=== PATIENT | male | born 1950 | race Caucasian/White ===

== ENCOUNTER 2021-05-04 15:08 | Outpatient (CLI) | payer MEDICARE, MEDICAID, SELFPAY ==
[2021-05-04 16:00] LABS: Basophils Percent Auto 0.4 % (0.2-1.2); Eosinophils Absolute Auto 0.2 K/mm3 (0-0.3); Eosinophils Percent Auto 2.2 % (0-4.4); Hematocrit 45.4 % (42.0-52.0); Immature Granulocyte Absolute 0.06 K/mm3 (0.00-0.031); Immature Granulocyte Percent A 0.8 % (0-0.5); Immature Reticulocyte Fraction 10.2 % (3.0-15.9); Lymphocytes Absolute Auto 1.25 K/mm3 (0.9-3.2); Lymphocytes Percent Auto 16.5 % (18.3-44.2); Mean Corpuscular Hemoglobin 28.5 pg (26-34); Mean Corpuscular Volume 86.3 fl (80-100); Mean Platelet Volume 8.6 fl (7.4-10.4); Monocytes Absolute Auto 0.6 K/mm3 (0.1-0.6); Monocytes Percent Auto 8.3 % (2.6-8.5); Neutrophils Absolute Auto 5.5 K/mm3 (1.3-6.7); Neutrophils Percent Auto 71.8 % (45.5-73.1); Platelet Count Result 275 k/mm3 (150-375); Red Blood Count 5.26 M/mm3 (4.6-6.20); Red Cell Distribution Width 13.6 % (11.5-14.5); Reticulocyte Percent 1.15 % (0.7-4.3); Reticulocytes Absolute 0.06 B/L (32.2-175.7); White Blood Count 7.6 K/mm3 (4.5-10.0)
[2021-05-04 16:12] LABS: Alanine Aminotransferase 36 U/L (4-50); Albumin Level 4.6 g/dL (3.5-5.1); Alkaline Phosphatase 59 U/L (38-126); Anion Gap 8 mmol/L (8-16); Aspartate Amino Transferase 37 U/L (17-59); Bilirubin,Total 0.9 mg/dL (0.2-1.3); Blood Urea Nitrogen 16 mg/dL (9-20); Calcium 9.4 mg/dL (8.4-10.2); Carbon Dioxide 26 mmol/L (22-30); Chloride 99 mmol/L (98-107); Cholesterol 114 mg/dL (0-200); Estimated Glomerular Filt Rate > 60; Glucose 83 mg/dL (65-110); HDL Direct 32 mg/dL; Lactate Dehydrogenase 439 U/L (313-618); Potassium 4.2 mmol/L (3.4-5.0); Sodium 133 mmol/L (137-145); Triglycerides 53 mg/dL (<150)
[2021-05-04 16:24] LABS: LDL Cholesterol Direct 71 mg/dL; Transferrin 196 mg/dL (206-381)
[2021-05-04 16:31] LABS: MALB Creatinine Ratio 8.6 mg/g (0-30); Microalbumin Urine Random 14.9 mg/L (0-16.7)
[2021-05-04 16:44] LABS: Prostate Specific Antigen 2.3 ng/mL (< OR = 4.0)
[2021-05-04 17:18] LABS: Folic Acid 15.4 ng/mL (2.76->20)
[2021-05-04 17:43] LABS: Iron 106 ug/dL (49-181)
[2021-05-04 17:50] LABS: Percent Iron Saturation 36 % (20-50)
== END 2021-05-04 15:09 | disposition home or self-care (01) ==
PROVIDERS: PCP Family Medicine; Visit Provider Family Medicine
DX: Z12.5 Encounter for screening for malignant neoplasm of prostate (principal); I12.9 Hypertensive chronic kidney disease with stage 1 through stage 4 chronic kidney disease, or unspecified chronic kidney disease; N18.2 Chronic kidney disease, stage 2 (mild); D50.9 Iron deficiency anemia, unspecified; E78.5 Hyperlipidemia, unspecified; Z00.00 Encounter for general adult medical examination without abnormal findings
CPT/HCPCS: 36415; 80053; 80061; 82043; 82306; 82607; 82728; 82746; 83540; 83550; 83615; 84153; 84439; 84443; 84466; 84480; 85025; 85046; G0103

== ENCOUNTER → 2022-04-24 01:26 | Outpatient (CLI) | payer MEDICARE, MEDICAID, SELFPAY ==
[2022-04-24 10:40] LABS: SARS-CoV-2 RNA PCR Negative
== END ==
DX: C44.212 Basal cell carcinoma of skin of right ear and external auricular canal (principal); Z20.822 Contact with and (suspected) exposure to COVID-19
CPT/HCPCS: C9803; U0003; U0005

== ENCOUNTER 2022-11-27 10:12 | Outpatient (CLI) | payer MEDICARE, MEDICAID, SELFPAY ==
[2022-11-27 10:57] LABS: Basophils Percent Auto 0.6 % (0.2-1.2); Eosinophils Absolute Auto 0.1 K/mm3 (0-0.3); Hematocrit 47.3 % (42.0-52.0); Hemoglobin 15.4 g/dL (14.0-18.0); Immature Granulocyte Absolute 0.03 K/mm3 (0.00-0.031); Immature Granulocyte Percent A 0.4 % (0-0.5); Lymphocytes Absolute Auto 1.11 K/mm3 (0.9-3.2); Lymphocytes Percent Auto 15.8 % (18.3-44.2); Mean Corpuscular HGB Conc 32.6 g/dl (32-36); Mean Corpuscular Hemoglobin 28.7 pg (26-34); Mean Corpuscular Volume 88.2 fl (80-100); Mean Platelet Volume 8.7 fl (7.4-10.4); Monocytes Absolute Auto 0.7 K/mm3 (0.1-0.6); Monocytes Percent Auto 10.2 % (2.6-8.5); Platelet Count Result 249 k/mm3 (150-375); Red Blood Count 5.36 M/mm3 (4.6-6.20); Red Cell Distribution Width 13.8 % (11.5-14.5)
[2022-11-27 11:10] LABS: Alanine Aminotransferase 22 U/L (6-50); Albumin Level 4.4 g/dL (3.5-5.1); Alkaline Phosphatase 55 U/L (38-126); Anion Gap 9 mmol/L (8-16); Aspartate Amino Transferase 25 U/L (17-59); Bilirubin,Total 0.8 mg/dL (0.2-1.3); Blood Urea Nitrogen 15 mg/dL (9-20); Calcium 9.1 mg/dL (8.4-10.2); Carbon Dioxide 26 mmol/L (22-30); Chloride 101 mmol/L (98-107); Cholesterol 118 mg/dL (0-200); Estimated Glomerular Filt Rate > 60; Glucose 99 mg/dL (65-110); HDL Direct 32 mg/dL; Potassium 4.2 mmol/L (3.4-5.0); Sodium 136 mmol/L (137-145); Triglycerides 56 mg/dL (<150)
[2022-11-27 11:22] LABS: LDL Cholesterol Direct 63 mg/dL
[2022-11-27 11:28] LABS: Iron 57 ug/dL (49-181)
[2022-11-27 11:33] LABS: Creatinine Urine 141.7 mg/dL
[2022-11-27 11:34] LABS: MALB Creatinine Ratio 17.6 mg/g (0-30); Microalbumin Urine Random 24.9 mg/L (0-16.7)
[2022-11-27 11:38] LABS: Percent Iron Saturation 17 % (20-50)
[2022-11-27 11:39] LABS: Total Triiodothyronine (T3) 1.09 NG/ML (0.97-1.69)
[2022-11-27 12:01] LABS: Hepatitis B Surface Antigen Negative (Negative)
[2022-11-27 12:06] LABS: HAV RESULT Negative (Negative); Hepatitis B Core IgM Result Negative (Negative)
[2022-11-27 12:18] LABS: Hepatitis C Virus Antibody Negative (Negative)
[2022-11-27 12:22] LABS: Free T4 Free Thyroxine 1.51 ng/mL (0.78-2.19); Vitamin D 25 Hydroxy 34.9 ng/mL
== END 2022-11-27 10:13 | disposition home or self-care (01) ==
PROVIDERS: Visit Provider Family Medicine
DX: E55.9 Vitamin D deficiency, unspecified (principal); E78.5 Hyperlipidemia, unspecified; I25.10 Atherosclerotic heart disease of native coronary artery without angina pectoris; I12.0 Hypertensive chronic kidney disease with stage 5 chronic kidney disease or end stage renal disease; N18.9 Chronic kidney disease, unspecified; K21.9 Gastro-esophageal reflux disease without esophagitis; D50.9 Iron deficiency anemia, unspecified; Z11.59 Encounter for screening for other viral diseases
CPT/HCPCS: 36415; 80053; 80061; 80074; 82043; 82306; 82728; 83540; 83550; 84439; 84443; 84480; 85025

== ENCOUNTER 2023-03-16 08:31 | Emergency (ER) | payer MEDICARE, MEDICAID, SELFPAY ==
[2023-03-16 08:40] VITALS: BP 151/81; PULSE 63; RESP 14; TEMP 36.6; O2SAT 100
--- NOTE | 2023-03-16 08:54 | ED.EXTPRO ---
HPI - Extremity Problem General Chief complaint: Extremity Problem,Nontraumatic Stated complaint: left knee pain Time Seen by Provider: 03/16/23 09:33 Source: patient and RN notes reviewed Mode of arrival: ambulatory Limitations: no limitations History of Present Illness HPI Narrative: 72-year-old male presents with concern for right knee pain for approximately 10 days. He denies any injury or trauma. He reports pain is anterior and occurs mostly when he is sitting down and bending his knee. He reports pain is not significant when he is walking. He denies any tenderness. He denies redness, warmth, swelling. He has not taken any medication for pain or other intervention for his symptoms. He denies history of problems with the knee. MD Complaint: extremity pain Related Data Home Medications Medication Instructions Recorded Confirmed metoprolol tartrate 25 mg tablet mg 03/16/23 03/16/23 Allergies Allergy/AdvReac Type Severity Reaction Status Date / Time clopidogrel Allergy Intermediate SEVERE Verified 03/16/23 08:55 BRUISING Review of Systems Review of Systems: CONSTITUTIONAL: Denies malaise, chills, sweats, or fever. SKIN: Denies rash or itching, open skin, laceration, abrasion, redness, warmth, swelling. MUSCULOSKELETAL: Reports left knee pain NEUROLOGIC: Denies numbness, weakness All systems reviewed & are unremarkable except as noted in HPI and below PMFSH Comments At time of signature, agree with nursing past medical, surgical, social and family history. There is no relevant family history pertinent to the presenting complaint Exam Narrative: GENERAL: Well-appearing, well-nourished, and in no acute distress. HEAD: Normocephalic, atraumatic. EYES: PERRLA, conjunctivae clear NECK: Supple. CHEST: Speaks in full sentences. No respiratory distress. HEART: Regular rate and rhythm. Normal and equal peripheral pulses. EXTREMITIES: Right knee has grossly normal strength and sensation, normal range of motion. No edema or ecchymosis. 5/5 strength with the flexion and extension. Normal sensation with sensitivity to light touch and pain. No point tenderness. No open wounds, no skin tenting, no devitalized tissue or atrophy, no trophic changes, no obvious deformity, alignment normal, nearby joints and structures intact. Distal pulses palpable and equal bilaterally, skin warm, dry, pink. Capillary refill less than 3 seconds. SKIN: Warm, dry, no rash. NEURO: Alert and oriented x3. PSYCH: Normal mood and affect Course Course Emergency Course: Patient is aware of diagnosis, understands and agrees to treatment plan. Anticipatory guidance given. Patient agrees to follow-up as directed and is aware of reasons to seek care at the emergency department. Portions of this record may have been created with voice recognition software Level of Care: Express Care Visit Vital Signs Vital signs: Vital Signs Temperature 97.9 F 03/16/23 08:40 Pulse Rate 63 03/16/23 08:40 Respiratory Rate 14 03/16/23 08:40 Blood Pressure 151/81 H 03/16/23 08:40 Pulse Oximetry 100 03/16/23 08:40 Temperature 97.9 F 03/16/23 08:40 Pulse Rate 63 03/16/23 08:40 Respiratory Rate 14 03/16/23 08:40 Blood Pressure 151/81 H 03/16/23 08:40 Pulse Oximetry 100 03/16/23 08:40 Reviewed. Critical Care Time Critical Care Time Critical Care Time: No Discharge Plan Discharge Clinical Impression: Anterior knee pain Patient Disposition: Home, Self-Care Condition: Stable Instructions: Knee Pain (ED) Additional Instructions: Avoid activities that cause pain until the pain subsides. Ice to the area 20-30 minutes 4-6 times a day Elevate above heart Elastic wrap as directed for comfort for the next 5-7 days Tylenol for lesser pain Ibuprofen regularly for the next 2-3 days for the inflammation Follow up with orthopedic provider if the condition is not improving within 1 week. If the conditio
== END 2023-03-16 09:55 | disposition home or self-care (01) ==
PROVIDERS: Emergency Provider Nurse Practitioner; PCP Nurse Practitioner Adult Health
DX: M25.562 Pain in left knee (principal)
CPT/HCPCS: 99213; G0463

== ENCOUNTER 2023-10-22 12:53 | Outpatient (CLI) | payer MEDICARE, MEDICAID, SELFPAY ==
[2023-10-22 13:44] LABS: Basophils Percent Auto 0.4 % (0.2-1.2); Eosinophils Absolute Auto 0.1 K/mm3 (0-0.3); Eosinophils Percent Auto 1.3 % (0-4.4); Hematocrit 49.1 % (42.0-52.0); Hemoglobin 15.6 g/dL (14.0-18.0); Immature Granulocyte Absolute 0.04 K/mm3 (0.00-0.031); Immature Granulocyte Percent A 0.5 % (0-0.5); Lymphocytes Absolute Auto 1.38 K/mm3 (0.9-3.2); Lymphocytes Percent Auto 18.5 % (18.3-44.2); Mean Corpuscular HGB Conc 31.8 g/dl (32-36); Mean Corpuscular Hemoglobin 27.8 pg (26-34); Mean Corpuscular Volume 87.5 fl (80-100); Mean Platelet Volume 8.9 fl (7.4-10.4); Monocytes Absolute Auto 0.7 K/mm3 (0.1-0.6); Monocytes Percent Auto 8.7 % (2.6-8.5); Neutrophils Absolute Auto 5.3 K/mm3 (1.3-6.7); Neutrophils Percent Auto 70.6 % (45.5-73.1); Platelet Count Result 282 k/mm3 (150-375); Red Blood Count 5.61 M/mm3 (4.6-6.20); Red Cell Distribution Width 13.9 % (11.5-14.5); White Blood Count 7.5 K/mm3 (4.5-10.0)
[2023-10-22 14:40] LABS: Alanine Aminotransferase 24 U/L (6-50); Albumin Level 4.4 g/dL (3.5-5.1); Alkaline Phosphatase 66 U/L (38-126); Anion Gap 9 mmol/L (8-16); Aspartate Amino Transferase 32 U/L (17-59); Bilirubin,Total 1.3 mg/dL (0.2-1.3); Blood Urea Nitrogen 23 mg/dL (9-20); Calcium 9.8 mg/dL (8.4-10.2); Carbon Dioxide 26 mmol/L (22-30); Chloride 103 mmol/L (98-107); Cholesterol 126 mg/dL (0-200); Estimated Glomerular Filt Rate > 60; Glucose 78 mg/dL (65-110); HDL Direct 37 mg/dL; Potassium 4.3 mmol/L (3.4-5.0); Sodium 138 mmol/L (137-145); Triglycerides 49 mg/dL (<150)
[2023-10-22 14:52] LABS: LDL Cholesterol Direct 76 mg/dL
[2023-10-22 15:12] LABS: Total Triiodothyronine (T3) 0.97 NG/ML (0.97-1.69)
[2023-10-22 15:38] LABS: Creatinine Urine 205.3 mg/dL
[2023-10-22 15:45] LABS: Microalbumin Urine Random 22.5 mg/L (0-16.7)
[2023-10-22 15:54] LABS: Free T4 Free Thyroxine 1.37 ng/mL (0.78-2.19)
== END 2023-10-22 12:54 | disposition home or self-care (01) ==
PROVIDERS: PCP Nurse Practitioner Adult Health; Visit Provider Nurse Practitioner Adult Health
DX: Z12.5 Encounter for screening for malignant neoplasm of prostate (principal); I10 Essential (primary) hypertension; E78.5 Hyperlipidemia, unspecified; R53.83 Other fatigue; R53.1 Weakness
CPT/HCPCS: 36415; 80053; 80061; 82043; 84153; 84439; 84443; 84480; 85025; G0103

== ENCOUNTER 2023-11-22 13:56 | Emergency (ER) | payer MEDICARE, MEDICAID, SELFPAY ==
--- NOTE | 2023-11-22 13:58 | ED.EAR ---
HPI - Ear Problem General Chief complaint: Ear Stated complaint: left ear pain Time Seen by Provider: 11/22/23 13:58 Source: patient Mode of arrival: ambulatory Limitations: no limitations History of Present Illness HPI Narrative: Patient is a 73-year-old male who presents with 1 week of headaches, sores on head and itching on left side of head. Patient also has left ear pain. Patient's primary care provider appointment next week. Patient also has follow-up for skin cancer evaluation next month. MD Complaint: ear pain Related Data Home Medications Medication Instructions Recorded Confirmed metoprolol tartrate 25 mg tablet 25 mg PO DAILY 03/16/23 11/22/23 atorvastatin 20 mg tablet 20 mg PO DAILY 11/22/23 11/22/23 Allergies Allergy/AdvReac Type Severity Reaction Status Date / Time clopidogrel Allergy Intermediate SEVERE Verified 11/22/23 14:14 BRUISING Review of Systems Review of Systems: All systems reviewed & are unremarkable except as noted in HPI and below Constitutional: Constitutional: Denies body ache(s), Denies chills, Denies fever(s), Reports headache(s) and Denies malaise Eyes: Eyes: Denies blurry vision, Denies eye discharge and Denies irritation ENT: Reports otalgia, Denies headache(s), Denies nasal congestion, Denies nasal discharge and Denies sore throat Cardiovascular: Cardiovascular: Denies chest pain, Denies edema, Denies palpitations and Denies dyspnea on exertion Respiratory: Respiratory: Denies cough and Denies dyspnea on exertion Gastrointestinal: Gastrointestinal: Denies abdominal pain, Denies diarrhea, Denies nausea and Denies vomiting Musculoskeletal: Musculoskeletal: Denies back pain, Denies arthralgias and Denies muscle weakness Integumentary/Breasts: Skin/Breast: Reports pruritus, Reports lesions and Denies rash Neurologic: Denies headache(s) Psychiatric: Psychiatric: Reports no additional psychiatric complaints Endocrine: Endocrine: Denies palpitations PMFSH Comments At time of signature, agree with nursing past medical, surgical, social and family history. There is no relevant family history pertinent to the presenting complaint? Exam Const: General: cooperative, healthy appearing, no acute distress and well nourished Nutritional Appearance: well nourished Orientation/consciousness: patient oriented x3 Limitations: no limitations HENMT: Head: normal to inspection, normocephalic and atraumatic Ears: hearing grossly normal bilaterally, TM's normal bilaterally, EAC's normal and no periauricular adenopathy Face/Nose/Sinus: Normal external nose present, Normal nares present, Normal nasal mucous membranes and turbinates present, No nasal discharge present, normal facial exam and sinuses nontender Face and sinus: normal facial exam and sinuses nontender Mouth: Yes Normal oral and palatal mucosa present, Yes lip normal, Yes tongue normal and Yes moist mucous membranes Throat: posterior oropharynx normal, tonsils normal and uvula midline Eyes: General: appearance normal, both eyes and all related structures Alignment and Position: alignment normal and position normal Eyelids: eyelids normal Pupils: Equal, round and reactive pupils present EOM: EOMs intact bilaterally Neck: Neck: normal visual inspection, full ROM, no lymphadenopathy and supple Chest: Chest palpation & inspection: normal inspection of the chest Resp: Effort & Inspection: normal respiratory effort and able to speak in complete sentences Auscultation: clear to auscultation bilaterally, no crackles, no rales, no rhonchi and no wheezes Cardio: Rate: regular rate Rhythm: regular rhythm Heart sounds: S1 normal heart sound present and S2 normal heart sound present Skin: General skin exam: normal color and no rashes or lesions noted Rashes: rashes noted (head) vesicles left arrangement clustered, surface warm, waxy and with crusting and tender Neuro: General: patient oriented x3 and moves all extremities Crania
[2023-11-22 14:11] VITALS: BP 149/79; PULSE 59; RESP 16; TEMP 37.1; O2SAT 98
== END 2023-11-22 15:00 | disposition home or self-care (01) ==
PROVIDERS: Emergency Provider Nurse Practitioner Family; PCP Nurse Practitioner Adult Health
DX: B02.9 Zoster without complications (principal); E78.00 Pure hypercholesterolemia, unspecified; I10 Essential (primary) hypertension
CPT/HCPCS: 99213; G0463

== ENCOUNTER 2023-12-09 08:56 | Emergency (ER) | payer MEDICARE, MEDICAID, SELFPAY ==
--- NOTE | ~2023-12-09 | CT_ITS ---
EXAMINATION: CT brain wo con DATE: 12/09/2023 09:33 INDICATION: Headache. TECHNIQUE: Computed tomography (CT) of the head was performed without intravenous contrast. The mA wa s adjusted according to patient size. Iterative reconstruction technique was employed. The dose-lengt h product was 605.33 mGy-cm. COMPARISON: None FINDINGS: There are scattered areas of low attenuation in the cerebral white matter. There is a 6 mm hyperdense mass in the anterior third ventricle. There is an empty sella. There is no intracranial he morrhage or acute ischemic infarct. The ventricles are normal in size. There is mild mucosal thickeni ng in the paranasal sinuses. The orbits are normal. The mastoid air cells are normal. IMPRESSION: 1. 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 2. Mild nonspecific cerebral white matter disease, which likely represents chronic small vessel ische stefan disease. Reviewed, dictated and finalized at location A. IMPRESSION: 1. 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 2. 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
--- NOTE | 2023-12-09 09:20 | ED.HA ---
HPI - Headache General Chief Complaint: Headache <Jg Osborn APRN - Last Filed: 12/09/23 11:19> Stated Complaint: headache for a while <Jg Osborn APRN - Last Filed: 12/09/23 11:19> Time Seen by Provider: 12/09/23 09:02 <Jg Osborn APRN - Last Filed: 12/09/23 11:19> Source: patient and family <Jg Osborn APRN - Last Filed: 12/09/23 11:19> Mode of arrival: ambulatory <Jg Osborn APRN - Last Filed: 12/09/23 11:19> Limitations: no limitations <Jg Osborn APRN - Last Filed: 12/09/23 11:19> History of Present Illness HPI Narrative: Nic is a 73-year-old male patient presenting to the ER today with complaints of a headache for the past 3-4 weeks. He was seen on November 21 in urgent care and diagnosed with shingles. He was given valacyclovir and this has not helped. States that he took a 500 mg Tylenol this morning and this helped relieve the pain. States that his head feels sore at this time. Is reporting pain to the occipital and across the forehead. Denies any visual changes, loss of vision, dizziness, shortness of breath, or chest pain. <Jg Osborn APRN - Last Filed: 12/09/23 11:19> Related Data Home Medications: Home Medications Medication Instructions Recorded Confirmed metoprolol tartrate 25 mg tablet 25 mg PO DAILY 03/16/23 11/22/23 atorvastatin 20 mg tablet 20 mg PO DAILY 11/22/23 11/22/23 <Jg Osborn APRN - Last Filed: 12/09/23 11:19> Allergies/Adverse Reactions: Allergies Allergy/AdvReac Type Severity Reaction Status Date / Time clopidogrel Allergy Intermediate SEVERE Verified 12/09/23 09:00 BRUISING <Jg Osborn APRN - Last Filed: 12/09/23 11:19> Review of Systems Review of Systems: Pertinent positives per HPI. Patient denies any fever, chills, rash,visual changes, dizziness, cough, runny nose, sore throat, shortness of breath, chest pain, palpitations, nausea, vomiting, diarrhea, constipation, abdominal pain, or any urinary issues. <Jg Osborn APRN - Last Filed: 12/09/23 11:19> PMFSH Comments At the time of my signature, I reviewed and agree with the nursing past medical, surgical, social, and family history. There is no relevant family history pertinent to the patient complaint. <Jg Osborn APRN - Last Filed: 12/09/23 11:19> Exam Narrative: General: Well-developed, well nourished, in no apparent distress Head: Normocephalic, atraumatic Eyes: Pupils equally round and reactive to light bilaterally, EOM intact, sclera and conjunctive clear, no discharge, lids normal Ears: TMs intact and clear, ear canals clear, no drainage, grossly hearing normal. Nose: Nares patent, no discharge, no inflammation, no sinus tenderness. Mouth: Oropharynx without lesions or masses, good dentition, MMM. Tongue midline, even rise and fall of uvula Neck: Supple, trachea midline, no enlargement of anterior or posterior cervical nodes, no thyroid masses or goiter palpable. Cardio: Regular rate and rhythm, s1 and s2 normal, no murmur appreciated. Resp: Clear to auscultation bilaterally anteriorly and posteriorly, no rhonchi, rales, wheezing or rubs Musculoskeletal: No deformity, non-tender to palpation, grossly normal range of motion, muscle strength strong and equal, peripheral pulse strong, no edema, no cyanosis, normal gait and station Neuro: Alert and oriented x4 with normal speech, no focal deficits, cranial nerves I through XII intact, muscle strength 5 out of 5, sensation intact bilaterally. <Jg Osborn APRN - Last Filed: 12/09/23 11:19> Course Course Emergency Course: Portions of this record may have been created with voice recognition software. <Jg Osborn APRN - Last Filed: 12/09/23 11:19> DESIGN SPECIALIST/PA Physician Supervision For this patient encounter, I reviewed the DESIGN SPECIALIST or PA documentation, treatment plan, and med
[2023-12-09 10:06] LABS: Basophils Percent Auto 0.6 % (0.2-1.2); Eosinophils Absolute Auto 0.1 K/mm3 (0-0.3); Eosinophils Percent Auto 1.3 % (0-4.4); Hematocrit 46.4 % (42.0-52.0); Hemoglobin 14.9 g/dL (14.0-18.0); Immature Granulocyte Absolute 0.03 K/mm3 (0.00-0.031); Immature Granulocyte Percent A 0.4 % (0-0.5); Lymphocytes Absolute Auto 1.25 K/mm3 (0.9-3.2); Lymphocytes Percent Auto 18.2 % (18.3-44.2); Mean Corpuscular HGB Conc 32.1 g/dl (32-36); Mean Corpuscular Hemoglobin 28.1 pg (26-34); Mean Corpuscular Volume 87.4 fl (80-100); Mean Platelet Volume 9.2 fl (7.4-10.4); Monocytes Absolute Auto 0.6 K/mm3 (0.1-0.6); Monocytes Percent Auto 9.2 % (2.6-8.5); Neutrophils Absolute Auto 4.8 K/mm3 (1.3-6.7); Neutrophils Percent Auto 70.3 % (45.5-73.1); Platelet Count Result 301 k/mm3 (150-375); Red Blood Count 5.31 M/mm3 (4.6-6.20); Red Cell Distribution Width 14.1 % (11.5-14.5); White Blood Count 6.9 K/mm3 (4.5-10.0)
[2023-12-09 10:07] LABS: Appearance Urine Clear (Clear); Bilirubin Urine Negative (Negative); Blood Urine Negative (Negative); Color Urine Yellow (Yellow); Glucose Urine UA Negative (Negative); Ketones Urine Negative (Negative); Leukocyte Esterase Ur Negative LEU/UL (Negative); Nitrate Urine Negative (Negative); Protein Urine Negative (Negative); pH Urine 5.5 (5.0-9.0)
[2023-12-09 10:18] LABS: Alanine Aminotransferase 24 U/L (6-50); Albumin Level 4.3 g/dL (3.5-5.1); Alkaline Phosphatase 50 U/L (38-126); Anion Gap 5 mmol/L (4-12); Aspartate Amino Transferase 26 U/L (17-59); Bilirubin,Total 0.7 mg/dL (0.2-1.3); Blood Urea Nitrogen 23 mg/dL (9-20); Calcium 9.1 mg/dL (8.4-10.2); Carbon Dioxide 26 mmol/L (22-30); Chloride 101 mmol/L (98-107); Estimated CRCL calculation 45 ml/min; Estimated Glomerular Filt Rate > 60; Glucose 97 mg/dL (65-110); Potassium 4.2 mmol/L (3.4-5.0); Sodium 132 mmol/L (137-145)
[2023-12-09 10:47] LABS: Add Urine Microscopic? NO; Specific Grav Ur 1.032 (1.001-1.035)
[2023-12-09 12:02] VITALS: BP 131/71; PULSE 50; RESP 18; O2SAT 98
== END 2023-12-09 12:10 | disposition home or self-care (01) ==
PROVIDERS: Emergency Provider Nurse Practitioner Family; PCP Nurse Practitioner Adult Health
DX: G44.89 Other headache syndrome (principal); Q04.6 Congenital cerebral cysts
CPT/HCPCS: 36415; 70450; 80053; 81003; 85025; 99284

== ENCOUNTER 2024-06-25 11:35 | Outpatient (CLI) | payer MEDICARE, MEDICAID, SELFPAY ==
[2024-06-25 12:40] LABS: Alanine Aminotransferase 19 U/L (6-50); Albumin Level 4.4 g/dL (3.5-5.1); Alkaline Phosphatase 58 U/L (38-126); Anion Gap 4 mmol/L (4-12); Aspartate Amino Transferase 26 U/L (17-59); Blood Urea Nitrogen 19 mg/dL (9-20); Calcium 9.5 mg/dL (8.4-10.2); Carbon Dioxide 31 mmol/L (22-30); Chloride 106 mmol/L (98-107); Cholesterol 108 mg/dL (0-200); Estimated Glomerular Filt Rate > 60; Glucose 90 mg/dL (65-110); HDL Direct 35 mg/dL; Potassium 4.3 mmol/L (3.4-5.0); Sodium 141 mmol/L (137-145); Triglycerides 58 mg/dL (<150)
[2024-06-25 12:51] LABS: LDL Cholesterol Direct 52 mg/dL
[2024-06-25 13:10] LABS: Prostate Specific Antigen 2.8 ng/mL (< OR = 4.0)
== END 2024-06-25 11:36 | disposition home or self-care (01) ==
PROVIDERS: PCP Family Medicine; Visit Provider Registered Nurse
DX: Z12.5 Encounter for screening for malignant neoplasm of prostate (principal); E78.5 Hyperlipidemia, unspecified
CPT/HCPCS: 36415; 80053; 80061; 84153; G0103

== ENCOUNTER 2024-12-07 07:44 | Outpatient (CLI) | payer MEDICARE, MEDICAID, SELFPAY ==
--- OUTSIDE RECORDS SUMMARY | 2024-12-07 07:50 | XMS_ITS ---
Author Organization [facility] Address [address] [place] [address] Care Team Providers Care Enrichment Teacher Name Role Phone Beto Chan MD Primary Care Provider Active Problems Problem Noted Date Diagnosed Date Cardiovascular stress test abnormal 11/06/2024 Coronary artery disease 11/06/2024 Sensorineural hearing loss, bilateral 12/25/2023 Basal cell carcinoma (BCC) of auricle of right e ar 04/17/2022 Overview (04/17/2022): Added automatically from request for surgery [id number] Coronary artery disease invo lving [place] coronary artery of [place] heart without angina pectoris 01/15/2017 Hx of CABG 01/15/2017 Dyslipidemia 01/15/2017 History of non-ST elevation myocardial infarctio n (NSTEMI) 01/15/2017 Right upper quadrant abdominal pain 01/15/2017 Current Treatment and Therapy Plans No current plan information found. Past Treatment and Therapy Plans No past plan information found. Lifetime Dose Tracking * Chemical Lifetime Dose Automatic Entry Manual Entr y DLP 554 mGycm 554 mGycm 0 mGycm
--- OUTSIDE RECORDS SUMMARY | 2024-12-07 07:50 | XMS_ITS | Referral Summary ---
Author Organization [facility] Address [address] [place] [address] Care Team Providers Care Hearing Aid Specialist Name Role Phone Beto Chan MD Primary Care Provider [phone] Encounters Date Type Department Care Team Description 12/04/2024 Telephone [facility] Cardiology [address] [place] [address] Eagle Koroma MD 11/16/2024 Orders Only [facility] Neurosurgery [address], [address] [place] [id number] Jewel Villa MD Colloid cyst of third ventricle (HCC) (Primary Dx) 11/16/2024 12:00 PM CDT Office Visit [facility] Neurosurgery [address], [address] [place] [address] Jewel Villa MD Colloid cyst of third ventricle (HCC) 11/16/2024 8:50 AM CDT - 11/16/2024 11:59 PM CDT Hospital Encounter [facility] - MRI [address] [facility] [address] [place] [address] Colloid cyst of third ventricle (HCC) Discharge Disposition: Discharge to home or self care 11/06/2024 Telephone [facility] Cardiology [address] [place] [address] Evelia Garcia NP 11/05/2024 Results Follow-Up [facility] Cardiology [address] [facility] [address] [place] [phone] Evelia Garcia NP 11/04/2024 11:15 AM CDT Ancillary Procedure [facility] Cardiology [address] [place] [address] Coronary artery disease involving [place] coronary artery of [place] heart without angina pectoris; S/P CABG x 3 10/21/2024 1:00 PM CDT Office Visit [facility] Cardiology [address] [place] [address] Eagle Koroma MD Coronary artery disease involving [place] coronary artery of [place] heart without angina pectoris (Primary Dx); S/P CABG x 3; Lipid screening from Last 3 Months Allergies Active Allergy Reactions Criticality Noted Date Comments Clopidogrel Other (See comments) Low 01/15/2017 bruising Medications gabapentin (NEURONTIN) 300 mg capsule Take 1 capsule (300 mg total) by mouth nightly 300 capsule 4 Active Additional Information Patient not taking.Reported on 11/16/2024 valACYclovir (VALTREX) 1 gram tablet TAKE 1 TABLET BY MOUTH THREE TIMES DAILY FOR 7 DAYS 4 Active atorvastatin (LIPITOR) 40 mg tabletIndicatio ns:Coronary artery disease involving [place] coronary artery of [place] heart without angina pectoris Take 1 tablet (40 mg total) by mouth nightly 90 tablet 6 5 Active aspirin 81 mg enteric coated tablet Take 1 tablet (81 mg total) by mouth daily 30 tablet 11 5 10/22/19 26 Active Active Problems Problem Noted Date Diagnosed Date Cardiovascular stress test abnormal 11/06/2024 Coronary artery disease 11/06/2024 Sensorineural hearing loss, bilateral 12/25/2023 Basal cell carcinoma (BCC) of auricle of right e ar 04/17/2022 Overview (04/17/2022): Added automatically from request for surgery [id number] Coronary artery disease invo lving [place] coronary artery of [place] heart without angina pectoris 01/15/2017 Hx of CABG 01/15/2017 Dyslipidemia 01/15/2017 History of non-ST elevation myocardial infarctio n (NSTEMI) 01/15/2017 Right upper quadrant abdominal pain 01/15/2017 Immunizations Immunization Administration Dates Next Due Influenza, Quadrivalent, Hig h Dose, Preservative Free, Intrr 05/19/2021,03/29/2020 Influenza, Quadrivalent, Split, Intramuscular Influenza, Quadrivalent, Spl it, Preservative Free, Intramuscular 05/14/2019 Influenza, Trivalent, Adjuvanted, Intramuscular 04/28/2018,07/19/2017 Tdap 12/18/2017 Social History Tobacco Use Types Packs/Day Years Used Date Smoking Tobacco: Never Smokeless Tobacco: Never Tobacco Cessation:Counseling Given: Not Answered Alcohol Use Standard Drinks/Week Comments No 0 (1 standard drink = 0.6 oz pur e alcohol) AUDIT-C Answer Date Recorded Q1: How often do you have a drink containing alcohol? Never 2022 Q2: How many drinks containi ng alcohol do you have on a typical day when you are drinking? Patient does not drink Q3: How often do you have si x or more drinks on one occasion? Never 2022 Personal Safety Answer Date Recorded Have you ever been in or are you currently in a harmful physical or emotional relationship or is someone making you feel afraid or unsafe? Denies 12/13/2023 Sex and Gender Information Value Date Recorded Sex Assigned at Not on file Legal Sex Male 4:26 PM CDT Gender Identity Not on file Sexual Orientation Not on file Last Filed Vital Signs Vital Sign Reading Time Taken Comments Blood Pressure 120/72 10/21/2024 12:54 PM CDT Pulse 64 10/21/2024 12:54 PM CDT Temperature 36.6 C (97.9 F) 12/13/2023 7:04 AM CDT Respiratory Rate 18 12/13/2023 2:48 PM CDT Oxygen Saturation 97% 10/21/2024 12:54 PM CDT Inhaled Oxygen Concentration - - Weight 64.4 kg (142 lb) 10/21/2024 12:54 PM CDT Height 160 cm (5' 3 ) 10/21/2024 12:54 PM CDT Body Mass Index 25.15 10/21/2024 12:54 PM CDT Plan of Treatment Upcoming Encounters Date Type Department Care Team (Latest Contact Info) Description 12/10/2024 10:00 AM CDT Hospital Encounter [facility] Cardiac Catheterization Lab [address] [place] [address] Eagle Koroma MD [address] [address] Cardiovascular stress test abnormal; Coronary artery disease, unspecified vessel or lesion type, unspecified whether angina present, unspecified whether [place] or transplanted heart 12/10/2024 10:00 AM CDT - 12/10/2024 11:30 AM CDT Surgery [facility] Cardiac Catheterization Lab [address] [place] [address] Eagle Koroma MD [address] [place] [address] [place] [address] LEFT HEART CATHETERIZATION WITH CORONARY ANGIOGRAPHY AND WITH OR WITHOUT LEFT VENTRICULOGRAM [id number] Procedures Procedure Name Priority Date/Time Associated Diagnosis Comments MRI BRAIN W WO CONTRAST Schedule Routine, Read Routine (OP Routine) 11/16/2024 9:42 AM CDT Colloid cyst of third ventricle (HCC) NM MPI SPECT (REST AND/OR STRESS) MULTIPLE STUDIES Schedule Routine, Read Routine (OP Routine) 11/04/2024 12:40 PM CDT Coronary artery disease involving [place] coronary artery of [place] heart without angina pectoris S/P CABG x 3 POCT LIPID PANEL Routine 10/21/2024 12:4 9 AM CDT Coronary artery disease involving [place] coronary artery of [place] heart without angina pectoris from Last 3 Months Results * MRI Brain W WO Contrast (11/16/2024 9:42 AM CDT) Anatomical Region Laterality Modality Head and Neck N/A Magnetic Resonan ce 11/16/2024 10:1 1 AM CDT Impressions 11/16/2024 10:11 AM CDT Stable, 5 mm, T2 hypointense (calcified) nonenhancing lesion near the foramen of Barajas on the left most likely is representing a calcified colloid cyst. Electronically signed by: Frankie Vernon M.D. Narrative 11/16/2024 10:11 AM CDT EXAMINATION: Magnetic resonance imaging (MRI) of the brain and brainstem without and with contrast HISTORY: Left foramina of Monro colloid cyst in the setting of recent headaches. Headaches, stable since last year. No nausea/vomiting. TECHNIQUE: Multiplanar multi-weighted MRI of the brain and brainstem was performed without and with intravenous contrast using the general brain protocol. Contrast information: 12 mL Gadoterate Meglumine IV COMPARISON: 12/13/2023 CT and 12/13/2023 MRI FINDINGS: The previously noted calcified lesion near the foramen of [place]ajas on the left measures 5 mm. This sequence that best delineates the lesion is the T2-weighted scan. The lesion is dark on T2. The lesion is hypointense on T1-weighted imaging. It does not enhance. The lesion is stable. The scalp and calvarium are normal. The superior sagittal sinus demonstrates normal venous flow. The corpus callosum is normal in shape and signal intensity. The posterior fossa is unremarkable. The pituitary and sella are normal. The brainstem and craniocervical junction are unremarkable. Diffusion weighted images reveal no hyperintensities to suggest acute cerebral infarction. The susceptibility weighted sequences reveal no evidence of acute or chronic hemorrhage. There is 1 stable microhemorrhage in the basal ganglia on the left. The ventricles are normal in size and position without evidence of hydrocephalus. The paranasal sinuses are normal. The visualized portions of the mastoids are unremarkable. The orbits appear normal. Normal flow voids are demonstrated in the carotid arteries and basilar artery. There is no abnormal contrast enhancement. Procedure Note Frankie Vernon III, MD PhD - 11/16/2024 EXAMINATION: Magnetic resonance imaging (MRI) of the brain and brainstem without and with contrast HISTORY: Left foramina of [place]ro colloid cyst in the setting of recent headaches. Headaches, stable since last year. No nausea/vomiting. TECHNIQUE: Multiplanar multi-weighted MRI of the brain and brainstem was performed without and with intravenous contrast using the general brain protocol. Contrast information: 12 mL Gadoterate Meglumine IV COMPARISON: 12/13/2023 CT and 12/13/2023 MRI FINDINGS: The previously noted calcified lesion near the foramen of [place]ajas on the left measures 5 mm. This sequence that best delineates the lesion is the T2-weighted scan. The lesion is dark on T2. The lesion is hypointense on T1-weighted imaging. It does not enhance. The lesion is stable. The scalp and calvarium are normal. The superior sagittal sinus demonstrates normal venous flow. The corpus callosum is normal in shape and signal intensity. The posterior fossa is unremarkable. The pituitary and sella are normal. The brainstem and craniocervical junction are unremarkable. Diffusion weighted images reveal no hyperintensities to suggest acute cerebral infarction. The susceptibility weighted sequences reveal no evidence of acute or chronic hemorrhage. There is 1 stable microhemorrhage in the basal ganglia on the left. The ventricles are normal in size and position without evidence of hydrocephalus. The paranasal sinuses are normal. The visualized portions of the mastoids are unremarkable. The orbits appear normal. Normal flow voids are demonstrated in the carotid arteries and basilar artery. There is no abnormal contrast enhancement. IMPRESSION: Stable, 5 mm, T2 hypointense (calcified) nonenhancing lesion near the foramen of Barajas on the left most likely is representing a calcified colloid cyst. Electronically signed by: Frankie Vernon M.D. Jewel Villa MD [facility] MRI PROCEDURES Final Re sult * NM MPI SPECT (Rest and/or Stress) Multiple Studies (11/04/2024 12:40 PM CDT) Anatomical Region Laterality Modality Body N/A Nuclear Medicine 11/04/2024 9:47 AM CDT Narrative 11/04/2024 4:43 PM CDT [facility] Cardiology [address] [facility] [address], [place] [address] [address] [facility] [facility] [address], [place] [address] P:[phone] P:[phone] MPI Imaging Report Patient Name: NIC MADRIGAL F : 1950 Study Date: 11/04/2024 9:47:29 AM Gender: M Tech: CARINE JOYA Location: [facility] Provider: KOUL, EAGLE Height(Cm): 160 BSA: Weight(Kg): 64.4 BMI: 25.16 Order Provider: EAGLE KOROMA PHYSICIAN: Referring Physician: Dr. Chan. HCG Physician: Eagle Koroma M.D., F.A.C.C. Interpreting Physician: Sourav Monae M.D. Stress Supervision: Sourav Monae M.D. PROCEDURES: Pharmacologic SPECT Report: Myocardial perfusion imaging with Tc99M Sestamibi SPECT at rest and stress post regadenoson (Lexiscan) infusion. INDICATIONS: High Cholesterol, I25.10 Atherosclerotic heart disease of [place] coronary artery without angina pectoris, and Z95.1 Presence of aortocoronary bypass graft. FINDINGS: Procedural Findings: One day rest/stress was used. Tc99m Sestamibi injected IV at rest was 10.3 millicuries 32.8 millicuries of Tc99M Sestamibi injected IV during Lexiscan stress Lexiscan 0.4mg administered IV over 10 seconds. Patient had no symptoms during stress test. Baseline heart rate was 58 BPM Maximum Heart Rate Achieved was: 98 BPM Baseline blood pressure was 128/74 mmHg Post Stress Blood Pressure was 124/76 mmHg Termination: Protocol complete. Resting ECG: Sinus bradycardia. Cannot r/o IMI - age uncertain. Cannot r/o lateral infarct - age uncertain. RBBB, LAFB. Post EC mm or more horizontal lat ST depression. Findings are suggestive of ischemia. Arrhythmia: No arrhythmias seen. Perfusion Findings: Abnormal perfusion imaging - see below. Technical quality of study is excellent. Prone imaging was performed. Left ventricle cavity size at rest is normal. Left ventricle cavity size with stress is unchanged. A TID of 0.66 was automatically calculated. defect 1: Size is large. Severity is moderate to severe in intensity. Location of defect is in the basal anterolateral segment, mid anterolateral segment, apical anterior segment and apical lateral segment. Reversibility is full. Type of defect is ischemia. LV Function: There is hyperdynamic global left ventricular systolic function. Left ventricular ejection fraction is 84 %. CONCLUSIONS: 1 mm or more horizontal lat ST depression. Findings are suggestive of ischemia. There is hyperdynamic global left ventricular systolic function. Left ventricular ejection fraction is 84 %. Size is large. Severity is moderate to severe in intensity. Location of defect is in the basal anterolateral segment, mid anterolateral segment, apical anterior segment and apical lateral segment. Reversibility is full. Type of defect is ischemia. Myocardial perfusion imaging is abnormal. Electronically Signed By: Joaquín Monae MD 11/04/2024 4:18:10 PM CDT Electronically Signed By: Joaquín Monae MD 11/04/2024 4:18:10 PM CDT Procedure Note Joaquín Monae MD - 11/04/2024 [facility] Cardiology [address] [facility] [address], [place] [address] [address] [facility] [id number], [place] [address] P:[phone] P:[phone] MPI Imaging Report Patient Name: NIC MADRIGAL F : 1950 Study Date: 11/04/2024 9:47:29 AM Gender: M Tech: [facility] Location: [facility] Provider: EAGLE KOROMA Height(Cm): 160 BSA: Weight(Kg): 64.4 BMI: 25.16 Order Provider: EAGLE KOROMA PHYSICIAN: Referring Physician: Dr. Chan. HCG Physician: Eagle Koroma M.D., F.A.C.C. Interpreting Physician: Sourav Monae M.D. Stress Supervision: Sourav Monae M.D. PROCEDURES: Pharmacologic SPECT Report: Myocardial perfusion imaging with Tc99M Sestamibi SPECT at rest and stresspost regadenoson (Lexiscan) infusion. INDICATIONS: High Cholesterol, I25.10 Atherosclerotic heart disease of [place] coronaryartery without angina pectoris, and Z95.1 Presence of aortocoronary bypass graft. FINDINGS: Procedural Findings: One day rest/stress was used. Tc99m Sestamibi injected IV at rest was 10.3 millicuries 32.8 millicuries of Tc99M Sestamibi injected IV during Lexiscan stress Lexiscan 0.4mg administered IV over 10 seconds. Patient had no symptoms during stress test. Baseline heart rate was 58 BPM Maximum Heart Rate Achieved was: 98 BPM Baseline blood pressure was 128/74 mmHg Post Stress Blood Pressure was 124/76 mmHg Termination: Protocol complete. Resting ECG: Sinus bradycardia. Cannot r/o IMI - age uncertain. Cannot r/o lateralinfarct - age uncertain. RBBB, LAFB. Post EC mm or more horizontal lat ST depression. Findings are suggestive ofischemia. Arrhythmia: No arrhythmias seen. Perfusion Findings: Abnormal perfusion imaging - see below. Technical quality of study isexcellent. Prone imaging was performed. Left ventricle cavity size at rest is normal. Leftventricle cavity size with stress is unchanged. A TID of 0.66 was automaticallycalculated. defect 1: Size is large. Severity is moderate to severe in intensity. Location ofdefect is in the basal anterolateral segment, mid anterolateral segment, apical anteriorsegment and apical lateral segment. Reversibility is full. Type of defect isischemia. LV Function: There is hyperdynamic global left ventricular systolic function. Leftventricular ejection fraction is 84 %. CONCLUSIONS: 1 mm or more horizontal lat ST depression. Findings are suggestive ofischemia. There is hyperdynamic global left ventricular systolic function. Leftventricular ejection fraction is 84 %. Size is large. Severity is moderate to severe in intensity. Location ofdefect is in the basal anterolateral segment, mid anterolateral segment, apical anteriorsegment and apical lateral segment. Reversibility is full. Type of defect isischemia. Myocardial perfusion imaging is abnormal. Electronically Signed By: Joaquín Monae MD 11/04/2024 4:18:10 PM CDT Electronically Signed By: Joaquín Monae MD 11/04/2024 4:18:10 PM CDT Eagle Koroma MD IMG NM PROCEDURES Final Result * POCT lipid panel (10/21/2024 12:49 AM CDT) Cholesterol, POC <100 mg/dL HDL, POC 30 mg/dL Triglycerides, POC <45 mg/dL LDL Cholesterol POC 60.2 mg/dL Chol/HDL Ratio, POC n/a Non-HDL Cholesterol, POC n/a mg/dL Cholesterol Total, POC <100 mg/dL Capillary blood 10/21/2024 1 2:49 AM CDT Eagle Koroma MD POINT OF CARE TEST ORDERABLES Fi nal Result from Last 3 Months Insurance IDPA IDPA HUMANA MEDICARE HMO HUMANA MEDICARE HMO IDPA Care Teams Hearing Aid Specialist Relationship Specialty Start Date End Date Beto Chan MD PCP - General Family Medicine 01/15/17
--- OUTSIDE RECORDS SUMMARY | 2024-12-07 07:50 | XMS_ITS | Clinical Summary ---
Author Organization [facility] Address [address] [place] [address] Care Team Providers Care Store Host Name Role Phone Beto Chan MD Primary Care Provider Allergies Active Allergy Reactions Criticality Noted Date [...] 40 mg tabletIndicatio ns:Coronary artery disease involving choctaw coronary artery of choctaw heart without angina pectoris Take 1 tablet [...] (04/17/2022): Added automatically from request for surgery [id number] Coronary artery disease invo lving choctaw coronary artery of choctaw heart without angina pectoris 01/15/2017 Hx of CABG 01/15/2017 Dyslipidemia 01/15/2017 History of non-ST elevation myocardial infarctio n (NSTEMI) 01/15/2017 Right upper quadrant abdominal pain 01/15/2017 Encounters Date Type Department Care Team Description 12/04/2024 Telephone [facility] Cardiology [address] [facility] [address] [place] [address] Eagle Koroma MD 11/16/2024 12:00 PM CDT Office Visit [facility] Neurosurgery [address] [facility] Floor 1, [address] [place] [address] Jewel Villa MD Colloid cyst of third ventricle (HCC) 11/16/2024 8:50 AM CDT - 11/16/2024 11:59 PM CDT Hospital Encounter [facility] - MRI [address] [facility] Floor 8 [place] [address] Colloid cyst of third ventricle (HCC) Discharge Disposition: Discharge to home or self care 11/16/2024 Orders Only [facility] Neurosurgery [address] [facility] Floor 1, [address] [place] [phone] Jeewl Villa MD Colloid cyst of third ventricle (HCC) (Primary Dx) 11/06/2024 Telephone [facility] Cardiology [address] [facility] [address] [place] [phone] Evelia Garcia NP 11/05/2024 Results Follow-Up [facility] Cardiology [address] [place] [address] [place] [phone] Evelia Garcia NP 11/04/2024 11:15 AM CDT Ancillary Procedure [facility] Cardiology [address] [facility] [address] [place] [address] Coronary artery disease involving choctaw coronary artery of choctaw heart without angina pectoris; S/P CABG x 3 10/21/2024 1:00 PM CDT Office Visit [facility] Cardiology [address] [place] [address] [address] [place] [address] Eagle Koroma MD Coronary artery disease involving choctaw coronary artery of choctaw heart without angina pectoris (Primary Dx); S/P CABG x 3; Lipid screening from Last 3 Months Immunizations Immunization Administration Dates Next Due Influenza, Quadrivalent, Hig h Dose, Preservative Free, Intrr 05/19/2021,03/29/2020 Influenza, Quadrivalent, Split, Intramuscular Influenza, Quadrivalent, Spl it, Preservative Free, Intramuscular 05/14/2019 Influenza, Trivalent, Adjuvanted, Intramuscular 04/28/2018,07/19/2017 Tdap 12/18/2017 Surgical History Surgery Date Site/Laterality Comments CORONARY ARTERY BYPASS GRAFT 08/05/2016 - 08/04/2017 MULTIPLE TOOTH EXTRACTIONS 08/05/2016 - 08/04/2017 Medical History Medical History Date Comments Chronic coronary artery disease Coronary artery disease Hx Other Medical Non ST-elevatio n [place], dyslipidemia Hx Other Medical CABG x3 GERD (gastroesophageal reflux disease) Family History Medical History Relation Name Comments Heart attack Father Myocardial infa rction; Cause of : Myocardial infarction Lung cancer Mother Cancer, lung; C ause of : Cancer, lung Anesthesia problems Neg Hx Relation Name Status Comments Father (Age 79) Mother (Age 79) Social History Tobacco Use Types Packs/Day Years [...] on file Sexual Orientation Not on file Obstetrics History Last Filed Vital Signs Vital Sign Reading [...] Description 12/10/2024 10:00 AM CDT Hospital Encounter [facility] Cardiac Catheterization Lab [id number] [place] [address] Eagle Koroma MD [address] [id number] Cardiovascular stress test abnormal; Coronary artery disease, unspecified vessel or lesion type, unspecified whether angina present, unspecified whether choctaw or transplanted heart 12/10/2024 10:00 AM CDT - 12/10/2024 11:30 AM CDT Surgery [facility] Cardiac Catheterization Lab [address] [place] [address] Eagle Koroma MD [address] [id number] LEFT HEART CATHETERIZATION WITH CORONARY ANGIOGRAPHY AND WITH OR WITHOUT LEFT VENTRICULOGRAM [id number] Health Maintenance Due Date Last Done Comments Depression Screening 1950 Hepatitis C Screening 1950 Hepatitis B Screening 1966 Pneumococcal vaccine 65+ (1 of 1 - PCV) 1998 Zoster Vaccine (1 of 2) 1998 Well Visit 65+ 2013 Fall Risk Assessment 2023 2022 Covid-19 Vaccine (3 - 2023-2 5 season) 2024 11/08/2020, 10/17/2020 Influenza Vaccine (Season Ended) 2025 05/19/2021, 03/29/2020, 05/14/2019, Additional history exists DTaP/Tdap/Td Vaccine (2 - Td or Tdap) 12/19/2027 12/18/2017 Procedures Procedure Name Priority Date/Time Associated Diagnosis Comments MRI BRAIN W WO CONTRAST Schedule Routine, Read Routine (OP Routine) 11/16/2024 9:42 AM CDT Colloid cyst of third ventricle (HCC) NM MPI SPECT (REST AND/OR STRESS) MULTIPLE STUDIES Schedule Routine, Read Routine (OP Routine) 11/04/2024 12:40 PM CDT Coronary artery disease involving choctaw coronary artery of choctaw heart without angina pectoris S/P CABG x 3 POCT LIPID PANEL Routine 10/21/2024 12:4 9 AM CDT Coronary artery disease involving choctaw coronary artery of choctaw heart without angina pectoris from Last 3 [...] by: Frankie Vernon M.D. Jewel Villa MD IM MRI PROCEDURES Final Re sult * NM MPI SPECT (Rest and/or Stress) Multiple Studies (11/04/2024 12:40 PM CDT) Anatomical Region Laterality Modality Body N/A Nuclear Medicine 11/04/2024 9:47 AM CDT Narrative 11/04/2024 4:43 PM CDT [facility] Cardiology [address] [facility] [address], [place] [address] [address] [facility] [address], [place] [address] P:[phone] P:[phone] MPI Imaging Report Patient Name: NIC MADRIGAL F : 1950 Study Date: 11/04/2024 9:47:29 AM Gender: M Tech: [facility] Location: [facility] Provider: EAGLE KOROMA Height(Cm): 160 BSA: Weight(Kg): 64.4 BMI: 25.16 Order Provider: EAGLE KOROMA PHYSICIAN: Referring Physician: Dr. Chan. HCG Physician: Eagle Koroma M.D., F.A.C.C. Interpreting Physician: Sourav Monae M.D. Stress Supervision: Sourav Monae M.D. PROCEDURES: Pharmacologic SPECT Report: Myocardial perfusion imaging with Tc99M Sestamibi SPECT at rest and stress post regadenoson (Lexiscan) infusion. INDICATIONS: High Cholesterol, I25.10 Atherosclerotic heart disease of choctaw coronary artery without angina pectoris, and Z95.1 [...] Procedure Note Joaquín Monae MD - 11/04/2024 [facility] Medical [facility] Cardiology [address], [place] [address] [id number], [place] [address] P:[phone] P:[phone] MPI Imaging Report Patient Name: NIC MADRIGAL F : 1950 Study Date: 11/04/2024 9:47:29 AM Gender: M Tech: [facility] Location: [facility] Provider: EAGLE KOROMA Height(Cm): 160 BSA: Weight(Kg): 64.4 BMI: 25.16 Order Provider: EAGLE KOROMA PHYSICIAN: Referring Physician: Dr. Chan. HCG Physician: Eagle Koroma M.D., F.A.C.C. Interpreting Physician: Sourav Monae M.D. Stress Supervision: Sourav Monae M.D. PROCEDURES: Pharmacologic SPECT Report: Myocardial perfusion imaging with Tc99M Sestamibi SPECT at rest and stresspost regadenoson (Lexiscan) infusion. INDICATIONS: High Cholesterol, I25.10 Atherosclerotic heart disease of choctaw coronaryartery without angina pectoris, and Z95.1 Presence [...] 11/04/2024 4:18:10 PM CDT Eagle Koroma MD [facility] PROCEDURES Final Result * POCT lipid panel [...] nal Result from Last 3 Months Insurance Member Subscriber Plan / Payer (Ef fective 2014-Present) Name:[employer] Relation to Subscriber:Self Name:Nic Madrigal Payer ID:[id number] Group ID:Not on file Type:MEDICAID [place] Address: [address] [employer] MEDICARE HMO [place] [id number] [facility] MEDICARE HMO IDPA Care Teams Store Host Relationship Specialty Start Date End Date Beto Chan MD PCP - General Family Medicine 01/15/17
--- OUTSIDE RECORDS SUMMARY | 2024-12-07 07:50 | XMS_ITS | Encounter Summary ---
Author Organization [facility] Address [address] [place] [address] Care Team Providers Care Binding End Stitcher Name Role Phone Beto Chan MD Primary Care Provider [phone] Encounter Details Date Type Department Care Team (Late st Contact Info) Description 11/05/2024 Results Follow-Up [facility] Cardiology [address] [phone] Evelia Garcia NP [address] [facility] [address] [address] Social History Tobacco Use Types Packs/Day Years Used Date Smoking Tobacco: Never Smokeless Tobacco: Never Alcohol Use Standard Drinks/Week Comments No 0 [...] on file Sexual Orientation Not on file documented as of this encounter Plan of Treatment Upcoming Encounters Date Type Department Care Team (Latest Contact Info) Description 12/10/2024 10:00 AM CDT Hospital Encounter [facility] Cardiac Catheterization Lab [address] [place] [address] Eagle Perez MD [address] [address] Cardiovascular stress test abnormal; Coronary artery disease, unspecified vessel or lesion type, unspecified whether angina present, unspecified whether [place] or transplanted heart 12/10/2024 10:00 AM CDT - 12/10/2024 11:30 AM CDT Surgery [facility] Cardiac Catheterization Lab [address] [place] [address] Eagle Perez MD [address] [facility] [address] [place], [place] [phone] LEFT HEART CATHETERIZATION WITH CORONARY ANGIOGRAPHY AND WITH OR WITHOUT LEFT VENTRICULOGRAM [id number] documented as of this encounter Visit Diagnoses Not on filedocumented in this encounter Care Teams Binding End Stitcher Relationship Specialty Start Date End Date Beto Chan MD PCP - General Family Medicine 01/15/17 documented as of this encounter
[2024-12-07 08:38] LABS: Basophils Percent Auto 0.5 % (0.2-1.2); Eosinophils Absolute Auto 0.1 K/mm3 (0-0.3); Eosinophils Percent Auto 1.4 % (0-4.4); Hematocrit 49.4 % (42.0-52.0); Hemoglobin 15.5 g/dL (14.0-18.0); Immature Granulocyte Absolute 0.02 K/mm3 (0.00-0.031); Immature Granulocyte Percent A 0.3 % (0-0.5); Lymphocytes Absolute Auto 1.11 K/mm3 (0.9-3.2); Lymphocytes Percent Auto 17.1 % (18.3-44.2); Mean Corpuscular HGB Conc 31.4 g/dl (32-36); Mean Corpuscular Volume 89.3 fl (80-100); Mean Platelet Volume 9.5 fl (7.4-10.4); Monocytes Absolute Auto 0.6 K/mm3 (0.1-0.6); Monocytes Percent Auto 8.6 % (2.6-8.5); Neutrophils Absolute Auto 4.7 K/mm3 (1.3-6.7); Neutrophils Percent Auto 72.1 % (45.5-73.1); Platelet Count Result 269 k/mm3 (150-375); Red Blood Count 5.53 M/mm3 (4.6-6.20); Red Cell Distribution Width 13.8 % (11.5-14.5); White Blood Count 6.5 K/mm3 (4.5-10.0)
[2024-12-07 08:42] LABS: Alanine Aminotransferase 74 U/L (6-50); Albumin Level 4.4 g/dL (3.5-5.1); Alkaline Phosphatase 77 U/L (38-126); Anion Gap 8 mmol/L (4-12); Aspartate Amino Transferase 39 U/L (17-59); Bilirubin,Total 1.1 mg/dL (0.2-1.3); Blood Urea Nitrogen 20 mg/dL (9-20); Calcium 9.5 mg/dL (8.4-10.2); Carbon Dioxide 27 mmol/L (22-30); Chloride 105 mmol/L (98-107); Estimated Glomerular Filt Rate > 60; Glucose 83 mg/dL (65-110); Potassium 4.5 mmol/L (3.4-5.0); Sodium 140 mmol/L (137-145)
== END 2024-12-07 07:45 | disposition home or self-care (01) ==
PROVIDERS: PCP Family Medicine; Visit Provider Internal Medicine Cardiovascular Disease
DX: Z01.812 Encounter for preprocedural laboratory examination (principal); I25.10 Atherosclerotic heart disease of native coronary artery without angina pectoris; R94.39 Abnormal result of other cardiovascular function study
CPT/HCPCS: 36415; 80053; 85025

== ENCOUNTER 2024-12-13 08:57 | Emergency (ER) | payer MEDICARE, MEDICAID, SELFPAY ==
--- NOTE | ~2024-12-13 | US_ITS ---
US arterial duplex LE RT 12/13/2024 09:47 Indication: Right groin ecchymosis after cardiac catheterization. Procedure: High-resolution Limited ultrasound of the right groin vascular structures Comparison: No prior studies for comparison. Findings: There is normal flow right common femoral, superficial femoral, profunda femoral arteries a nd common femoral and superficial femoral veins. No evidence for pseudoaneurysm. Impression: 1: Normal limited vascular ultrasound of the right groin. No evidence for pseudoaneurysm. Reviewed, dictated and finalized at location A. Impression: 1: Normal limited vascular ultrasound of the right groin. No evidence for pseud oaneurysm.
--- OUTSIDE RECORDS SUMMARY | 2024-12-13 09:01 | XMS_ITS | Referral Summary ---
Author Organization [facility] Address [address] [place] [address] Care Team Providers Care Stacker Tender Name Role Phone Beto Chan MD Primary Care Provider Encounters Date Type Department Care Team Description 12/10/2024 10:00 AM CDT - 12/10/2024 11:30 AM CDT Surgery [facility] Cardiac Catheterization Lab [address] [place] [address] Eagle Koroma MD LEFT HEART CATHETERIZATION WITH CORONARY ANGIOGRAPHY GRAFT AND WITH OR WITHOUT LEFT VENTRICULOGRAM [id number] 12/10/2024 7:41 AM CDT - 12/10/2024 2:04 PM CDT Hospital Encounter [facility] Cardiac Catheterization Lab [address] [place] [address] Eagle Koroma MD Cardiovascular stress test abnormal; Coronary artery disease, unspecified vessel or lesion type, unspecified whether angina present, unspecified whether navajo or transplanted heart Discharge Disposition: Discharge to home or self care 12/04/2024 Telephone [facility] Medical Group Cardiology [address] [place] [address] Eagle Koroma MD 11/16/2024 Orders Only [facility] Neurosurgery [facility] Floor 1, [address] [place] [phone] Jewel Villa MD Colloid cyst of third ventricle (HCC) (Primary Dx) 11/16/2024 12:00 PM CDT Office Visit [facility] Neurosurgery [facility] Floor 1, [address] [place] [address] Jewel Villa MD Colloid cyst of third ventricle (HCC) 11/16/2024 8:50 AM CDT - 11/16/2024 11:59 PM CDT Hospital Encounter [facility] Cancer Frannie - MRI [address] [facility] [address] [place] [address] Colloid cyst of third ventricle (HCC) Discharge Disposition: Discharge to home or self care 11/06/2024 Telephone [facility] Medical [facility] Cardiology [address] [facility] [address] [place] [address] Evelia Garcia NP 11/05/2024 Results Follow-Up [facility] Cardiology [address] [facility] [address] [address] Evelia Garcia NP 11/04/2024 11:15 AM CDT Ancillary Procedure [facility] Cardiology [address] [place] [address] [address] [place] [address] Coronary artery disease involving navajo coronary artery of navajo heart without angina pectoris; S/P CABG x 3 10/21/2024 1:00 PM CDT Office Visit [facility] Cardiology [address] [facility] [address] [place] [address] Eagle Koroma MD Coronary artery disease involving navajo coronary artery of navajo heart without angina pectoris (Primary Dx); S/P [...] 40 mg tabletIndicatio ns:Coronary artery disease involving navajo coronary artery of navajo heart without angina pectoris Take 1 tablet [...] (04/17/2022): Added automatically from request for surgery [id number] Coronary artery disease invo lving navajo coronary artery of navajo heart without angina pectoris 01/15/2017 Hx of [...] pur e alcohol) AUDIT-C Answer Date Recorded Frequency of Alcohol Consumption Not on file 12/10/2024 Q2: How many drinks containi ng alcohol do you have on a typical day when you are drinking? Patient does not drink Frequency of Binge Drinking Not on file 03/2025 Personal Safety Answer Date Recorded Have you ever been in or are you currently in a harmful physical or emotional relationship or is someone making you feel afraid or unsafe? Denies 12/10/2024 Sex and Gender Information Value Date Recorded Sex Assigned at Not on file Legal Sex Male 4:26 PM CDT Gender Identity Not on file Sexual Orientation Not on file Last Filed Vital Signs Vital Sign Reading Time Taken Comments Blood Pressure 129/72 12/10/2024 1:35 PM CDT Pulse 49 12/10/2024 1:45 PM CDT Temperature 36.3 C (97.3 F) 12/10/2024 8:06 AM CDT Respiratory Rate 17 12/10/2024 8:06 AM CDT Oxygen Saturation 97% 12/10/2024 1:45 PM CDT Inhaled Oxygen Concentration - - Weight 63.7 kg (140 lb 8 oz) 12/10/2024 8:06 AM CDT Height 157.5 cm (5' 2 ) 12/10/2024 8:06 AM CDT Body Mass Index 25.7 12/10/2024 8:06 AM CDT Plan of Treatment Not on file Medical Devices Implanted Type Area Certified Green Building Engineer Device Identifier Shelf Expiration Date Model / Serial / Lot [employer] Device 10ml 5fr Closure Mynx Control 2 Mode Balloon Catheter [id number] - [id number] Implanted:Qty: 1 on 12/10/2024 by Eagle Koroma MD at [facility] [employer] 09/29/2026 [id number] / / [id number] Procedures Procedure Name Priority Date/Time Associated Diagnosis Comments [facility] ART [id number] Routine 12/10/2024 11:05 AM CDT Cardiovascular stress test abnormal Coronary artery disease, unspecified vessel or lesion type, unspecified whether angina present, unspecified whether navajo or transplanted heart AORTOGRAM THORACIC S&I Routine 11:05 AM CDT Cardiovascular stress test abnormal Coronary artery disease, unspecified vessel or lesion type, unspecified whether angina present, unspecified whether navajo or transplanted heart LEFT HEART CATHETERIZATION WITH CORONARY ANGIOGRAPHY GRAFT AND LEFT VENTRICULOGRAM Routine 12/10/2024 11:05 AM CDT Cardiovascular stress test abnormal Coronary artery disease, unspecified vessel or lesion type, unspecified whether angina present, unspecified whether navajo or transplanted heart VASCULAR ACCESS US GUIDANCE Routine 12/10/2024 11:05 AM CDT Cardiovascular stress test abnormal Coronary artery disease, unspecified vessel or lesion type, unspecified whether angina present, unspecified whether navajo or transplanted heart MODERATE SEDATION 12/10/2024 9:3 8 AM CDT Cardiovascular stress test abnormal Coronary artery disease, unspecified vessel or lesion type, unspecified whether angina present, unspecified whether navajo or transplanted heart MRI BRAIN W WO CONTRAST Schedule Routine, Read Routine (OP Routine) 11/16/2024 9:42 AM CDT Colloid cyst of third ventricle (HCC) NM MPI SPECT (REST AND/OR STRESS) MULTIPLE STUDIES Schedule Routine, Read Routine (OP Routine) 11/04/2024 12:40 PM CDT Coronary artery disease involving navajo coronary artery of navajo heart without angina pectoris S/P CABG x 3 POCT LIPID PANEL Routine 10/21/2024 12:49 AM CDT Coronary artery disease involving navajo coronary artery of navajo heart without angina pectoris from Last 3 Months Results * VASCULAR ACCESS US GUIDANCE, LEFT HEART CATHETERIZATION WITH CORONARY ANGIOGRAPHY GRAFT AND LEFT VENTRICULOGRAM, AORTOGRAM THORACIC S&I, [facility] ART [id number] (12/10/2024 11:05 AM CDT) Anatomical Region Laterality Modality X-Ray Angiograph y Addenda Addendum by Eagle Koroma MD on 12/10/2024 11:29 AM CDT LEFT HEART CATHETERIZATION, CORONARY AND BYPASS GRAFT ANGIOGRAM REPORT DATE OF PROCEDURE: 12/10/24 INDICATION FOR PROCEDURE: CAD, history of CABG, abnormal MPI. BRIEF CLINICAL HISTORY: Nic Madrigal is a 74 y.o. male with CAD, history of non ST elevation ID status post CABG x3- -ALEXANDER to LAD, left radial to OM2, SVG to RPDA (10/19/16), dyslipidemia. Patient's recent MPI from 11/04/2024 reportedly showed hyperdynamic LV; large size rpstmbat-yl-vohomv intensity ischemia in basal anterolateral, mid anterolateral, apical anterior and apical lateral segments. Coronary and bypass graft Angiography was recommended. Patient has been on optimal medical treatment. Benefits and risks of the procedure were discussed with the patient in depth, and informed consent was taken prior to the procedure. Risks of the procedure include but are not limited to vascular complications like groin hematoma, retroperitoneal bleed, vessel perforation; periprocedural ID, cardiac arrhythmias, stroke, contrast induced nephropathy, and . After discussing all the benefits, risks and alternatives, patient was willing to proceed with the procedure. PROCEDURES PERFORMED: Left heart catheterization- selective left and right coronary angiogram, left ventriculogram, LV pressure management and hemodynamic assessment Aortogram Selective bypass graft Angiography Selective left subclavian angiogram Ultrasound-guided right common femoral arterial access (CPT 98054) Moderate sedation-CPT code 62400 Deployment of Mynx vascular closure device right common femoral arterial access site MODERATE SEDATION: Midazolam 1 mg , Fentanyl 25 mcg, start time 1009 stop time 1105, total direct fefm-xa-koyb monitoring of conscious sedation 57 minutes (CPT 34617) TRAINED OBSERVER: Galilea Coburn RN was trained observer for moderate sedation. ACCESS SITE: Right common femoral artery PROCEDURE: After obtaining informed consent, patient was brought to the superintendent geophysical laboratory and prepped and draped in the usual sterile manner. Time-out and immediate reassessment of the patient was performed. After local anesthesia with lidocaine, right common femoral artery access was taken with micropuncture needle under ultrasound guidance followed by insertion of a 6 [place] sheath. Selective left and right coronary angiography was performed using 5 F JL4 and 5F JR4 catheters respectively. Orthogonal views were taken. JR4 catheter was used for selective bypass graft Angiography of radial graft to OM. There was difficulty in visualizing the RCA graft despite using multiple catheters including JR4 catheter, multipurpose, RCB catheter. Aortogram was performed to see origin of the graft which could not be visualized. The JR4 catheter was withdrawn, and due to the unfavorable origin of the subclavian artery from the aortic arch, it was difficult to engage it selectively. After numerous attempts and using multiple catheters, finally, JL4 catheter was retroflexed into the origin of the left circumflex artery and selective left subclavian angiogram was performed. After this, the catheter was exchanged over a 035 long Glidewire with the IM catheter, alexander angiogram was performed using 5 [place] Islander IM catheter. During attempted RCA angiogram, multipurpose catheter advanced in the LV cavity, LV pressure measurement was performed, followed by left ventriculogram with minimal dye. The catheter was flushed, and gradient across the aortic valve was measured using pullback technique. Access site hemostasis was achieved with Mynx vascular closure device. Patient tolerated procedure well without any immediate procedure related complications. Estimated blood loss was minimal. All specimens removed. The angiographic and other findings are given below. FINDINGS: [place] CORONARY ARTERIES: LEFT MAIN CORONARY: Large caliber vessel, minimal narrowing at the ostium with minor irregularities in the distal segment. No significant focal stenosis. LEFT ANTERIOR DESCENDING ARTERY: Lad is a medium caliber vessel with diffuse disease in the proximal-mid segment. Alexander is anastomosed to the mid-distal segment with some competitive flow seen on the left coronary angiogram. Vessel gives rise to high diagonal branch which is a small to medium caliber vessel with diffuse disease. LEFT CIRCUMFLEX ARTERY: Medium to large caliber vessel with moderate 50-60% stenosis in the proximal segment with ectatic segments in between the stenosis. The vessel gives rise to diminutive OM1 branch, medium to large caliber OM2 branch and small to medium caliber OM3 branch. Other OM branches are small-caliber vessels. The body of the LCX has moderate diffuse disease. RIGHT CORONARY ARTERY: Right coronary artery is a medium caliber vessel with ectasia in the proximal segment and moderate diffuse disease. PDA is a medium caliber vessel with diffuse 70-80% stenosis in the mid segment. PLV branch is a small-caliber vessel with severe diffuse disease. LEFT VENTRICULOGRAM: Preserved LV systolic function, ejection fraction 60-70%. LVEDP 17 mmHg. BYPASS GRAFT ANGIOGRAPHY: ALEXANDER TO LAD: Medium caliber, tortuous graft, patent, no significant focal stenosis. The graft is anastomosed to mid-distal LAD. The navajo LAD after anastomosis is not well visualized but does not appear to have any significant stenosis. LEFT RADIAL TO OM2: Small-caliber, tortuous graft, no significant focal stenosis. There is mild stenosis at the anastomosis site with the small-caliber OM branch. SVG TO RPDA: Not visualized despite multiple attempts LEFT SUBCLAVIAN ANGIOGRAM: The left subclavian artery originates at an unfavorable angle from the aorta. The vessel is large caliber vessel without significant focal stenosis. HEMODYNAMIC ASSESSMENT: Opening pressure 120/63 mmHg, closing pressure 133/57 mmHg, LVEDP 17 mmHg. No significant gradient across aortic valve on the pull back of pigtail catheter. CONCLUSIONS: [place]o vessel CAD- A) diffuse 60-70% stenosis proximal-mid LAD; B) 50-60% diffuse stenosis proximal-mid LCX with ectatic segments; C) ectatic proximal RCA; 70-80% stenosis mid segment of RPDA Patent ALEXANDER to LAD, patent left radial to OM. SVG to RPDA not visualized. Patent left subclavian artery (unfavorable origin of subclavian artery from aorta making it difficult to engage, was engaged using JL4 catheter) PLAN/RECOMMENDATIONS: Continue current optimal medical treatment including antiplatelet treatment and statin. Coronary CT angiogram as an outpatient to check the patency of SVG to RPDA. Voice recognition software was used to complete this document, therefore, freight adjuster variances may occur. Eagle Koroma MD, [facility] 12/10/24 us Eagle Koroma MD CV CARDIAC CATH PROCEDURES Edite d Result - Final * MRI Brain W WO Contrast (11/16/2024 [...] [facility] Cardiology [address] [facility] [address], [place] [address] [address] [facility] [address], [place] [address] P:[phone] P:[phone] MPI Imaging Report Patient Name: NIC MADRIGAL F : 1950 Study Date: 11/04/2024 9:47:29 AM Gender: M Tech: [facility] Provider: EAGLE KOROMA Height(Cm): 160 BSA: Weight(Kg): 64.4 BMI: 25.16 Order Provider: EAGLE KOROMA PHYSICIAN: Referring Physician: Dr. Chan. HCG Physician: Eagle Koroma M.D., F.A.C.C. Interpreting Physician: Sourav Monae M.D. Stress Supervision: Sourav Monae M.D. PROCEDURES: Pharmacologic SPECT Report: Myocardial perfusion imaging with Tc99M Sestamibi SPECT at rest and stress post regadenoson (Lexiscan) infusion. INDICATIONS: High Cholesterol, I25.10 Atherosclerotic heart disease of navajo coronary artery without angina pectoris, and Z95.1 [...] [facility] [address] [facility] [address] [address] [address] [facility] [address], [place] [address] P:[phone] P:[phone] MPI Imaging Report Patient Name: NIC MADRIGAL F : 1950 Study Date: 11/04/2024 9:47:29 AM Gender: M Tech: [facility] Provider: EAGLE KOROMA Height(Cm): 160 BSA: Weight(Kg): 64.4 BMI: 25.16 Order Provider: EAGLE KOROMA PHYSICIAN: Referring Physician: Dr. Chan. HCG Physician: Eagle Koroma M.D., F.A.C.C. Interpreting Physician: Sourav Monae M.D. Stress Supervision: Sourav Monae M.D. PROCEDURES: Pharmacologic SPECT Report: Myocardial perfusion imaging with Tc99M Sestamibi SPECT at rest and stresspost regadenoson (Lexiscan) infusion. INDICATIONS: High Cholesterol, I25.10 Atherosclerotic heart disease of navajo coronaryartery without angina pectoris, and Z95.1 Presence [...] Joaquín Monae MD 11/04/2024 4:18:10 PM CDT Result [facility] Eagle Koroma MD [facility] PROCEDURES Final Result * POCT lipid panel [...] nal Result from Last 3 Months Insurance [place] Member Subscriber Plan / Payer (Ef fective 2014-Present) Name:NIC MADRIGAL Relation to Subscriber:Self Name:Nic Madrigal Payer ID:[id number] Group ID:Not on file Type:[place] Address: [place] [id number] [place] Member Subscriber Plan / Payer (Ef fective 2014-Present) Name:NIC MADRIGAL Relation to Subscriber:Self Name:Nic Madrigal Payer ID:[id number] Group ID:Not on file Type:[place] Address: [place] [id number] HUMAN MEDICARE HMO [facility] MEDICARE HMO IDPA Care Teams Stacker Tender Relationship Specialty Start Date End Date Beto Chna MD PCP - General Family Medicine 01/15/17
--- OUTSIDE RECORDS SUMMARY | 2024-12-13 09:01 | XMS_ITS ---
Author Organization [facility] Address [address] [place] [address] Care Team Providers Care Recruiting Administrator Name Role Phone Beto Chan MD Primary Care Provider Active Problems Problem Noted Date Diagnosed Date Cardiovascular stress test abnormal 11/06/2024 Coronary artery disease 11/06/2024 Sensorineural hearing loss, bilateral 12/25/2023 Basal cell carcinoma (BCC) of auricle of right e ar 04/17/2022 Overview (04/17/2022): Added automatically from request for surgery [id number] Coronary artery disease invo lving menominee coronary artery of menominee heart without angina pectoris 01/15/2017 Hx of CABG 01/15/2017 Dyslipidemia 01/15/2017 History of non-ST elevation myocardial infarctio n (NSTEMI) 01/15/2017 Right upper quadrant abdominal pain 01/15/2017 Current Treatment and Therapy Plans No current plan information found. Past Treatment and Therapy Plans No past plan information found. Lifetime Dose Tracking * Chemical Lifetime Dose Automatic Entry Manual Entr y Air kerma at the reference point (Ka,r) 630 mGy 0 mGy 630 mGy DLP 554 mGycm 554 mGycm 0 mGycm
--- OUTSIDE RECORDS SUMMARY | 2024-12-13 09:01 | XMS_ITS | Clinical Summary ---
Author Organization [facility] Address [address] [place] [address] Care Team Providers Care Developing Machine Tender Name Role Phone Beto Chan MD [...] 40 mg tabletIndicatio ns:Coronary artery disease involving caddo coronary artery of caddo heart without angina pectoris Take 1 tablet [...] (04/17/2022): Added automatically from request for surgery [id number] Coronary artery disease invo lving caddo coronary artery of caddo heart without angina pectoris 01/15/2017 Hx of CABG 01/15/2017 Dyslipidemia 01/15/2017 History of non-ST elevation myocardial infarctio n (NSTEMI) 01/15/2017 Right upper quadrant abdominal pain 01/15/2017 Encounters Date Type Department Care Team Description 12/10/2024 10:00 AM CDT - 12/10/2024 11:30 AM CDT Surgery [facility] Cardiac Catheterization Lab [id number] [place] [id number] Eagle Koroma MD LEFT HEART CATHETERIZATION WITH CORONARY ANGIOGRAPHY GRAFT AND WITH OR WITHOUT LEFT VENTRICULOGRAM [id number] 12/10/2024 7:41 AM CDT - 12/10/2024 2:04 PM CDT Hospital Encounter [facility] Cardiac Catheterization Lab [id number] [place] [address] Eagle Koroma MD Cardiovascular stress test abnormal; Coronary artery disease, unspecified vessel or lesion type, unspecified whether angina present, unspecified whether caddo or transplanted heart Discharge Disposition: Discharge to home or self care 12/04/2024 Telephone [facility] Cardiology [address] [place] [address] Eagle Koroma MD 11/16/2024 12:00 PM CDT Office Visit [facility] Neurosurgery [address] [facility] Floor 1, [address] [place] [phone] Jewel Villa MD Colloid cyst of third ventricle (HCC) 11/16/2024 8:50 AM CDT - 11/16/2024 11:59 PM CDT Hospital Encounter [facility] - MRI [address] 8 [place] [address] Colloid cyst of third ventricle (HCC) Discharge Disposition: Discharge to home or self care 11/16/2024 Orders Only [facility] Neurosurgery [address] [facility] Floor 1, [address] [place] [id number] Jewel Villa MD Colloid cyst of third ventricle (HCC) (Primary Dx) 11/06/2024 Telephone [facility] Cardiology [address] [place] [address] Evelia Garcia NP 11/05/2024 Results Follow-Up [facility] Medical [facility] Cardiology [address] [facility] [address] [place] [phone] Evelia Garcia NP 11/04/2024 11:15 AM CDT Ancillary Procedure [facility] Cardiology [address] [place] [address] Coronary artery disease involving caddo coronary artery of caddo heart without angina pectoris; S/P CABG x 3 10/21/2024 1:00 PM CDT Office Visit [facility] Cardiology [address] [place] [address] Eagle Koroma MD Coronary artery disease involving caddo coronary artery of caddo heart without angina pectoris (Primary Dx); S/P [...] 08/04/2017 MULTIPLE TOOTH EXTRACTIONS 08/05/2016 - 08/04/2017 CARDIAC CATHETERIZATION 12/10/2024 N/A Procedure: LEFT HEART CATHETERIZATION WITH CORONARY ANGIOGRAPHY GRAFT AND WITH OR WITHOUT LEFT VENTRICULOGRAM [id number]; Surgeon: Eagle Koroma MD; Location: [facility]; Service: Cardiovascular; Laterality: N/A; Medical devices from this surgery are in the Medical Devices section. CARDIAC CATHETERIZATION 12/10/2024 N/A Procedure: ULTRASOUND GUIDANCE FOR VASCULAR ACCESS S&I [id number]; Surgeon: Eagle Koroma MD; Location: [facility]; Service: Cardiovascular; Laterality: N/A; Medical devices from this surgery are in the Medical Devices section. CARDIAC CATHETERIZATION 12/10/2024 N/A Procedure: AORTOGRAM THORACIC S&I 12594; Surgeon: Eagle Koroma MD; Location: [facility]; Service: Cardiovascular; Laterality: N/A; Medical devices from this surgery are in the Medical Devices section. CARDIAC CATHETERIZATION 12/10/2024 N/A Procedure: SELECTIVE CATH SUBCLAVIAN OR INNOMINATE ARTERY, UNILATERAL [id number]; Surgeon: Eagle Koroma MD; Location: [facility]; Service: Cardiovascular; Laterality: N/A; Medical devices from this surgery are in the Medical Devices section. Medical History Medical History Date Comments Chronic coronary artery disease Coronary artery disease Hx Other Medical Non ST-elevatio n PA, dyslipidemia Hx Other Medical CABG x3 GERD [...] 12/10/2024 8:06 AM CDT Plan of Treatment Health Maintenance Due Date Last Done Comments Depression Screening 1950 Hepatitis C Screening 1950 Hepatitis B Screening 1966 Pneumococcal vaccine 65+ (1 of 1 - PCV) 1998 Zoster Vaccine (1 of 2) 1998 Well Visit 65+ 2013 Covid-19 Vaccine (3 - 2023-2 5 season) 2024 11/08/2020, 10/17/2020 Influenza Vaccine (Season Ended) 2025 05/19/2021, 03/29/2020, 05/14/2019, Additional history exists Fall Risk Assessment 12/10/2025 12/10/2024 DTaP/Tdap/Td Vaccine (2 - Td or Tdap) 12/19/2027 12/18/2017 Medical Devices Implanted Type Area Inspector Quality Assurance Device Identifier Shelf Expiration Date Model / Serial / Lot [employer] Device 10ml 5fr Closure Mynx Control 2 Mode Balloon Catheter [id number] - [id number] Implanted:Qty: 1 on 12/10/2024 by Eagle Koroma MD at [facility] [employer] 09/29/2026 [id number] / / [id number] Procedures Procedure Name Priority Date/Time Associated Diagnosis Comments [id number] Routine 12/10/2024 11:05 AM CDT Cardiovascular stress test abnormal Coronary artery disease, unspecified vessel or lesion type, unspecified whether angina present, unspecified whether caddo or transplanted heart AORTOGRAM THORACIC S&I Routine 11:05 AM CDT Cardiovascular stress test abnormal Coronary artery disease, unspecified vessel or lesion type, unspecified whether angina present, unspecified whether caddo or transplanted heart LEFT HEART CATHETERIZATION WITH CORONARY ANGIOGRAPHY GRAFT AND LEFT VENTRICULOGRAM Routine 12/10/2024 11:05 AM CDT Cardiovascular stress test abnormal Coronary artery disease, unspecified vessel or lesion type, unspecified whether angina present, unspecified whether caddo or transplanted heart VASCULAR ACCESS US GUIDANCE Routine 12/10/2024 11:05 AM CDT Cardiovascular stress test abnormal Coronary artery disease, unspecified vessel or lesion type, unspecified whether angina present, unspecified whether caddo or transplanted heart MODERATE SEDATION 12/10/2024 9:3 8 AM CDT Cardiovascular stress test abnormal Coronary artery disease, unspecified vessel or lesion type, unspecified whether angina present, unspecified whether caddo or transplanted heart MRI BRAIN W WO CONTRAST Schedule Routine, Read Routine (OP Routine) 11/16/2024 9:42 AM CDT Colloid cyst of third ventricle (HCC) NM MPI SPECT (REST AND/OR STRESS) MULTIPLE STUDIES Schedule Routine, Read Routine (OP Routine) 11/04/2024 12:40 PM CDT Coronary artery disease involving caddo coronary artery of caddo heart without angina pectoris S/P CABG x 3 POCT LIPID PANEL Routine 10/21/2024 12:49 AM CDT Coronary artery disease involving caddo coronary artery of caddo heart without angina pectoris from Last 3 Months Results * VASCULAR ACCESS US GUIDANCE, LEFT HEART CATHETERIZATION WITH CORONARY ANGIOGRAPHY GRAFT AND LEFT VENTRICULOGRAM, AORTOGRAM THORACIC S&I, [facility] ART [id number] (12/10/2024 11:05 AM CDT) Anatomical Region Laterality Modality X-Ray Angiograph y Addenda Addendum by Eagle Koroma MD on 12/10/2024 11:29 AM CDT LEFT HEART CATHETERIZATION, CORONARY AND BYPASS GRAFT ANGIOGRAM REPORT DATE OF PROCEDURE: 12/10/24 INDICATION FOR PROCEDURE: CAD, history of CABG, abnormal MPI. BRIEF CLINICAL HISTORY: Nic Prather is a 74 y.o. male with CAD, history of non ST elevation PA status post CABG x3- -GONSALVES to LAD, left radial to OM2, SVG to RPDA (10/19/16), dyslipidemia. Patient's recent MPI from 11/04/2024 reportedly showed hyperdynamic LV; large size sioylaxt-we-fvecgn intensity ischemia in basal anterolateral, mid anterolateral, [...] groin hematoma, retroperitoneal bleed, vessel perforation; periprocedural PA, cardiac arrhythmias, stroke, contrast induced nephropathy, and . After discussing all the benefits, risks and alternatives, patient was willing to proceed with the procedure. PROCEDURES PERFORMED: Left heart catheterization- selective left and right coronary angiogram, left ventriculogram, LV pressure management and hemodynamic assessment Aortogram Selective bypass graft Angiography Selective left subclavian angiogram Ultrasound-guided right common femoral arterial access (CPT 68777) Moderate sedation-CPT code 86688 Deployment of Mynx vascular closure device right common femoral arterial access site MODERATE SEDATION: Midazolam 1 mg , Fentanyl 25 mcg, start time 1009 stop time 1105, total direct [id number] monitoring of conscious sedation 57 minutes (CPT 98200) TRAINED OBSERVER: Galilea Coburn RN was trained observer for moderate sedation. ACCESS SITE: Right common femoral artery PROCEDURE: After obtaining informed consent, patient was brought to the cardiac cath lab radiology technologist and prepped and draped in the usual sterile manner. Time-out and immediate reassessment of the patient was performed. After local anesthesia with lidocaine, right common femoral artery access was taken with micropuncture needle under ultrasound guidance followed by insertion of a 6 Faroese sheath. Selective left and right coronary angiography [...] 035 long Glidewire with the IM catheter, gonsalves angiogram was performed using 5 Faroese IM catheter. During attempted RCA angiogram, multipurpose [...] and other findings are given below. FINDINGS: CACHIL DEHE CORONARY ARTERIES: LEFT MAIN CORONARY: Large caliber vessel, minimal narrowing at the ostium with minor irregularities in the distal segment. No significant focal stenosis. LEFT ANTERIOR DESCENDING ARTERY: Lad is a medium caliber vessel with diffuse disease in the proximal-mid segment. Gonsalves is anastomosed to the mid-distal segment with [...] 60-70%. LVEDP 17 mmHg. BYPASS GRAFT ANGIOGRAPHY: GONSALVES TO LAD: Medium caliber, tortuous graft, patent, no significant focal stenosis. The graft is anastomosed to mid-distal LAD. The caddo LAD after anastomosis is not well visualized [...] the pull back of pigtail catheter. CONCLUSIONS: Beaver vessel CAD- A) diffuse 60-70% stenosis proximal-mid LAD; B) 50-60% diffuse stenosis proximal-mid LCX with ectatic segments; C) ectatic proximal RCA; 70-80% stenosis mid segment of RPDA Patent GONSALVES to LAD, patent left radial to OM. [...] was used to complete this document, therefore, slat twister variances may occur. Eagle Koroma MD, [facility] 12/10/24 us Eagle Koroma MD CV CARDIAC [...] by: Frankie Vernon M.D. Jewel Villa MD [facility] MRI PROCEDURES Final Re sult * NM MPI SPECT (Rest and/or Stress) Multiple Studies (11/04/2024 12:40 PM CDT) Anatomical Region Laterality Modality Body N/A Nuclear Medicine 11/04/2024 9:47 AM CDT Narrative 11/04/2024 4:43 PM CDT [facility] Medical Group Cardiology [address] [facility] [address] [address] [address] [facility] [address] [address] P:[phone] P:[phone] MPI Imaging Report Patient Name: NIC PRATHER F : 1950 Study Date: 11/04/2024 9:47:29 AM Gender: M [facility] Provider: EAGLE KOROMA Height(Cm): 160 BSA: Weight(Kg): 64.4 BMI: 25.16 Order Provider: EAGLE KOROMA PHYSICIAN: Referring Physician: Dr. Chan. HCG Physician: Eagle Koroma M.D., F.A.C.C. Interpreting Physician: Sourav Monae M.D. Stress Supervision: Sourav Monae M.D. PROCEDURES: Pharmacologic SPECT Report: Myocardial perfusion imaging with Tc99M Sestamibi SPECT at rest and stress post regadenoson (Lexiscan) infusion. INDICATIONS: High Cholesterol, I25.10 Atherosclerotic heart disease of caddo coronary artery without angina pectoris, and Z95.1 [...] Procedure Note Joaquín Monae MD - 11/04/2024 [facility] Medical Group Cardiology [address], [place] [address] [address] [facility] [address], [place] [address] P:[phone] P:[phone] MPI Imaging Report Patient Name: NIC PRATHER F : 1950 Study Date: 11/04/2024 9:47:29 AM Gender: M Tech: TOAN [facility] Location: [facility] Provider: EAGLE KOROMA Height(Cm): 160 BSA: Weight(Kg): 64.4 BMI: 25.16 Order Provider: EAGLE KOROMA PHYSICIAN: Referring Physician: Dr. Chan. HCG Physician: Eagle Koroma M.D., F.A.C.C. Interpreting Physician: Sourav Monae M.D. Stress Supervision: Sourav Monae M.D. PROCEDURES: Pharmacologic SPECT Report: Myocardial perfusion imaging with Tc99M Sestamibi SPECT at rest and stresspost regadenoson (Lexiscan) infusion. INDICATIONS: High Cholesterol, I25.10 Atherosclerotic heart disease of caddo coronaryartery without angina pectoris, and Z95.1 Presence [...] 11/04/2024 4:18:10 PM CDT Eagle Koroma MD [facility] PROCEDURES Final Result * POCT lipid [...] nal Result from Last 3 Months Insurance [employer] MEDICARE HMO [facility] MEDICARE HMO IDPA Care Teams Developing Machine Tender Relationship Specialty Start Date End Date Beto Chan MD PCP - General Family Medicine 01/15/17
--- OUTSIDE RECORDS SUMMARY | 2024-12-13 09:01 | XMS_ITS | Encounter Summary ---
Author Organization [facility] Healthcare Address [address] [place] [address] Care Team Providers Care Desktop Operator Name Role Phone Beto Chan MD Primary Care Provider [phone] Encounter Details Date Type Department Care Team (Late st Contact Info) Description 11/05/2024 Results Follow-Up [facility] Medical Group Cardiology [address] [address] Evelia Garcia NP [address] [facility] [address] [address] Social History Tobacco Use Types [...] as of this encounter Plan of Treatment Not on file documented as of this encounter Visit Diagnoses Not on filedocumented in this encounter Care Teams Desktop Operator Relationship Specialty Start Date End Date Beto Cahn MD PCP - General Family Medicine 01/15/17 documented as of this encounter
[2024-12-13 09:09] VITALS: BP 158/76; PULSE 76; RESP 16; TEMP 36.7; O2SAT 100
--- NOTE | 2024-12-13 09:09 | ED.GENADULT ---
HPI - General Adult General Chief complaint: Unspecified Stated complaint: pain at cardiac cath site 12/10/24 Time Seen by Provider: 12/13/24 09:01 History of Present Illness HPI narrative: 74-year-old male present to the emergency department for evaluation for ecchymosis to right groin. Patient was at [facility] on Saturday having a cardiac catheterization. Patient states he had no blockages. Patient's became concerned because he was having some right groin tenderness and does have some increased ecchymosis at the site. Patient does have a history of CABG also done at [facility] approximately 8 years ago. Related Data Home Medications Medication Instructions Recorded Confirmed Last Taken Type metoprolol tartrate 25 mg tablet 25 mg PO DAILY 03/16/23 11/22/23 Unknown History atorvastatin 20 mg tablet 20 mg PO DAILY 11/22/23 11/22/23 Unknown History Allergies Allergy/AdvReac Type Severity Reaction Status Date / Time clopidogrel AdvReac Intermediate SEVERE Verified 12/13/24 08:59 BRUISING Review of Systems Review of Systems: All systems reviewed & are unremarkable except as noted in HPI and below Exam Narrative: APPEARANCE: Well appearing, no pain, no distress, well-nourished. HEAD: normocephalic, atraumatic. EYES: PERRLA/EOMI, conjunctivae clear. NOSE: Normal no drainage EARS:TMS clear with good light reflex. THROAT: Pharynx clear, no exudate. NECK: Supple. No adenopathy, no masses. RESPIRATORY: Airway patent, respirations nonlabored. Clear to auscultation bilaterally, no rales, rhonchi, wheezing. CARDIOVASCULAR: Regular rate and rhythm without murmurs rubs or gallops. ABDOMINAL: Soft, nontender, nondistended, normal bowel sounds. Ecchymosis at right groin with palpable pulse but no palpated MUSCULOSKELETAL: Moves all extremities. Strength/ROM intact, No edema, No calf tenderness. NEURO: Alert. Cranial nerves II through XII intact. Good gait. Good coordination SKIN: Warm, dry. Normal Color Course Vital Signs Vital signs: Vital Signs Temperature 98.0 F 12/13/24 09:09 Pulse Rate 76 12/13/24 09:09 Respiratory Rate 16 12/13/24 09:09 Blood Pressure 158/76 H 12/13/24 09:09 Pulse Oximetry 100 12/13/24 09:09 Oxygen Delivery Room Air 12/13/24 09:09 Temperature 98.0 F 12/13/24 09:09 Pulse Rate 52 L 12/13/24 10:34 Respiratory Rate 16 12/13/24 10:34 Blood Pressure 142/84 H 12/13/24 10:34 Pulse Oximetry 98 12/13/24 10:34 Oxygen Delivery Room Air 12/13/24 09:09 Medical Decision Making MDM Narrative Medical decision making narrative: 74-year-old male present to the emergency department for evaluation for present at the right groin after a recent Angiocath. Ultrasound was negative for pseudoaneurysm. Patient is afebrile with no leukocytosis and hemoglobin 11.4. 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 All questions concerns were addressed. Differential Diagnosis Differential Diagnosis: Hematoma, active extravasation Vital Signs Vital Signs: Vital Signs Temperature 98.0 F 12/13/24 09:09 Pulse Rate 76 12/13/24 09:09 Respiratory Rate 16 12/13/24 09:09 Blood Pressure 158/76 H 12/13/24 09:09 Pulse Oximetry 100 12/13/24 09:09 Oxygen Delivery Room Air 12/13/24 09:09 Temperature 98.0 F 12/13/24 09:09 Pulse Rate 52 L 12/13/24 10:34 Respiratory Rate 16 12/13/24 10:34 Blood Pressure 142/84 H 12/13/24 10:34 Pulse Oximetry 98 12/13/24 10:34 Oxygen Delivery Room Air 12/13/24 09:09 Lab Data Lab results reviewed: Yes I reviewed the patient's lab results. 12/13/24 09:19 12/13/24 09:19 Labs: Lab Results 12/13/24 Range/Units 09:19 WBC 7.3 (4.5-10.0) K/mm3 RBC 4.10 L (4.6-6.20) M/mm3 Hgb 11.4 L D (14.0-18.0) g/dL Hct 36.7 L (42.0-52.0) % MCV 89.5 (80-100) fl MCH 27.8 (26-34) pg MCHC 31.1 L (32-36) g/dl RDW 13.8 (11.5-14.5) % Plt Count 195 (150-375) k/mm3 MPV 9.5 (7.4-10.4) fl Immature Gran % (Auto) 0.6 H (0-0.5) % Neut % (Auto) 73.4 H (45.5-73.1) % Lymph % (Auto) 13.8 L (18.3-44.2) % Taney % (Auto) 10.7 H (2.6-8.5) % Eos % (Auto) 1.2 (0-4.4) % Baso % (Auto) 0.3 (0.2-1.2) % Lymph # (Auto) 1.00 (0.9-3.2) K/mm3 Taney # (Auto) 0.8 H (0.1-0.6) K/mm3 Eos # (Auto) 0.1 (0-0.3) K/mm3 Baso # (Auto) 0.0 (0.0-0.1) K/mm3 Abs Immat Gran (auto) 0.04 H (0.00-0.031) K/mm3 Absolute Neuts (auto) 5.3 (1.3-6.7) K/mm3 Absolute Nucleated RBC 0.000 (0.0-0.012) K/mm3 Nucleated RBC % 0.0 (0.0-0.2) % PT 14.0 (11.1-14.7) Seconds INR 1.0 APTT 34.2 (22.3-36.8) Seconds Sodium 139 (137-145) mmol/L Potassium 4.0 (3.4-5.0) mmol/L Chloride 106 (98-107) mmol/L Carbon Dioxide 26 (22-30) mmol/L Anion Gap 7 (4-12) mmol/L BUN 16 (9-20) mg/dL Creatinine 0.94 (0.7-1.3) mg/dL Estim Creat Clear Calc 47 ml/min Estimated GFR > 60 (59 - ) Glucose 93 (65-110) mg/dL Calcium 8.7 (8.4-10.2) mg/dL Total Bilirubin 0.7 (0.2-1.3) mg/dL AST 26 (17-59) U/L ALT 31 (6-50) U/L Alkaline Phosphatase 55 (38-126) U/L Total Protein 6.0 L (6.3-8.2) g/dL Albumin 3.5 (3.5-5.1) g/dL Imaging Data Radiologist's impression: Impressions Duplex Scan Lower Extremity Artery 12/13/24 09:51 Impression: 1: Normal limited vascular ultrasound of the right groin. No evidence for pseudoaneurysm. Discharge Plan Discharge Clinical Impression: Ecchymosis Patient Disposition: Home Condition: Stable Instructions: Antibiotic Form Additional Instructions: Continue to have close follow-up with your supervisor coal handling at [facility]. If you have any worsening symptoms then please call or return to the emergency department. Patient Language: Upper Sorbian Prescriptions: New valacyclovir 1 gram tablet 1,000 mg PO Q8H 7 Days Qty: 21 0RF No Action metoprolol tartrate 25 mg tablet 25 mg PO DAILY atorvastatin 20 mg tablet 20 mg PO DAILY valacyclovir 1 gram tablet 1,000 mg PO TID 7 Days Qty: 21 0RF Follow-up/Referrals: Beto Chan MD [Primary Care Provider] -
[2024-12-13 09:28] LABS: Basophils Percent Auto 0.3 % (0.2-1.2); Eosinophils Absolute Auto 0.1 K/mm3 (0-0.3); Eosinophils Percent Auto 1.2 % (0-4.4); Hematocrit 36.7 % (42.0-52.0); Hemoglobin 11.4 g/dL (14.0-18.0); Immature Granulocyte Absolute 0.04 K/mm3 (0.00-0.031); Immature Granulocyte Percent A 0.6 % (0-0.5); Lymphocytes Percent Auto 13.8 % (18.3-44.2); Mean Corpuscular HGB Conc 31.1 g/dl (32-36); Mean Corpuscular Hemoglobin 27.8 pg (26-34); Mean Corpuscular Volume 89.5 fl (80-100); Mean Platelet Volume 9.5 fl (7.4-10.4); Monocytes Absolute Auto 0.8 K/mm3 (0.1-0.6); Monocytes Percent Auto 10.7 % (2.6-8.5); Neutrophils Absolute Auto 5.3 K/mm3 (1.3-6.7); Neutrophils Percent Auto 73.4 % (45.5-73.1); Platelet Count Result 195 k/mm3 (150-375); Red Cell Distribution Width 13.8 % (11.5-14.5); White Blood Count 7.3 K/mm3 (4.5-10.0)
[2024-12-13 09:30] VITALS: PULSE 59
[2024-12-13 09:57] LABS: Partial Thromboplastin Time 34.2 Seconds (22.3-36.8)
[2024-12-13 10:34] VITALS: BP 142/84; PULSE 52; RESP 16; O2SAT 98
[2024-12-13 10:52] LABS: Alanine Aminotransferase 31 U/L (6-50); Albumin Level 3.5 g/dL (3.5-5.1); Alkaline Phosphatase 55 U/L (38-126); Anion Gap 7 mmol/L (4-12); Aspartate Amino Transferase 26 U/L (17-59); Bilirubin,Total 0.7 mg/dL (0.2-1.3); Blood Urea Nitrogen 16 mg/dL (9-20); Calcium 8.7 mg/dL (8.4-10.2); Carbon Dioxide 26 mmol/L (22-30); Chloride 106 mmol/L (98-107); Estimated CRCL calculation 47 ml/min; Estimated Glomerular Filt Rate > 60; Glucose 93 mg/dL (65-110); Sodium 139 mmol/L (137-145)
== END 2024-12-13 10:36 | disposition home or self-care (01) ==
PROVIDERS: Emergency Provider Emergency Medicine; PCP Family Medicine
DX: L76.82 Other postprocedural complications of skin and subcutaneous tissue (principal); R58 Hemorrhage, not elsewhere classified; I25.10 Atherosclerotic heart disease of native coronary artery without angina pectoris; Z95.1 Presence of aortocoronary bypass graft; Y84.0 Cardiac catheterization as the cause of abnormal reaction of the patient, or of later complication, without mention of misadventure at the time of the procedure
CPT/HCPCS: 36415; 80053; 85025; 85610; 85730; 93926; 99284

== ENCOUNTER 2025-05-14 09:13 | Emergency (ER) | payer MEDICARE, MEDICAID, SELFPAY ==
[2025-05-14 09:23] VITALS: BP 134/68; PULSE 63; RESP 18; TEMP 36.7; O2SAT 98
--- NOTE | 2025-05-14 09:27 | ED_ITS ---
HPI - URI/Sore Throat General Chief Complaint: Upper Respiratory Infection Stated Complaint: congestion Time Seen by Provider: 05/14/25 09:30 Source: patient, RN notes reviewed and old records reviewed Mode of arrival: ambulatory Limitations: no limitations History of Present Illness HPI Narrative: 75 year old male who presents to [facility] care with complaints of chest congestion, cough, and runny nose since yesterday. Patient reports that he has not had any fevers chills or any body aches. Patient reports that he has had open heart surgery and didn't know what he could take that would be safe with his heart. Patient denies any nausea or vomiting or diarrhea,denies sore throat or any ear pain or shortness of breath. 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) Onset (ago): day(s) (2) Severity: mild Able to tolerate fluids by mouth: Yes Treatments prior to arrival: none Related Data Home Medications ?Medication ?Instructions ?Recorded ?Confirmed ?Last Taken ?Type atorvastatin 20 mg tablet 20 mg PO DAILY 11/22/2311/03 Unknown History aspirin 81 mg tablet,delayed 81 mg PO DAILY 05/14/25 Unknown History release (Adult Low Dose Aspirin) Allergies Allergy/AdvReac Type Severity Reaction Status Date / Time clopidogrel AdvReac Intermediate SEVERE Verified 05/14/25 09:34 BRUISING Review of Systems Review of Systems: CONSTITUTIONAL: Denies malaise, chills, sweats, or fever. EYES: Denies visual changes, redness, or discharge. ENT: Reports rhinorrhea, congestion, sinus pain,no otalgia and no sore throat. CARDIOVASCULAR: Denies chest pain, palpitations, or edema. RESPIRATORY: Reports cough.? Denies dyspnea. GASTROINTESTINAL: Denies abdominal pain, nausea, vomiting, diarrhea SKIN: Denies rash or itching. MUSCULOSKELETAL: Denies myalgia. NEUROLOGIC: Denies headache. All systems reviewed & are unremarkable except as noted in HPI and below PMFSH Past Medical History Medical History (Updated 05/14/25 @ 09:45 by Angela Mooney NP) Myocardial infarction 2017 Hyperlipidemia Hypertension Surgical History Surgical History (Updated 05/14/25 @ 09:28 by Angela Mooney NP) History of open heart surgery Social History Social History (Updated 05/14/25 @ 09:45 by Angela Mooney NP) Smoking status: Never smoker Alcohol intake: never Substance use: never Living arrangements: with family Gender identity (if verbalized by the patient): Male Comments At time of signature, agree with nursing past medical, surgical, social and family history. There is no relevant family history pertinent to the presenting complaint Exam Narrative: GENERAL: Well-appearing, well-nourished, and in no acute distress. HEAD: Normocephalic EYES: PERRLA, conjunctivae clear ENT: Nares clear, turbinates edematous and erythematous, clear discharge. Mucous membranes moist. TM pearly fuentes with dull light reflex bilaterally; no tragal tenderness. Oropharynx erythematous without lesions. Tonsils not enlarged and without exudate, no drooling, no hoarseness, no trismus, uvula midline. post nasal drainage. NECK: Supple. No lymphadenopathy CHEST: Clear to auscultation, breath sounds equal. No wheezing, rhonchi, rales, or stridor. No respiratory distress, speaks in full sentences. denies any shortness of breath reports cough productive at times of white mucous SAO2 98% on room air HEART: Regular rate and rhythm. No murmur heard. SKIN: Warm, dry, no rash. NEURO: Alert and oriented x3. PSYCH: Normal mood and affect Course Course Emergency Course: Patient is aware of diagnosis, understands and agrees to treatment plan.? Anticipatory guidance given.? Patient agrees to follow-up as directed and is aware of reasons to seek care at the emergency department. Portions of this record may have been created with voice recognition software Level of Care: Express Care Visit Vital Signs Vital signs: Vital Signs Temperature 36.7 C 05/14/25 09:23 Pulse Rate 63 05/14/25 09:23 Respiratory Rate 18 05/14/25 09:23 Blood Pressure 134/68 05/14/25 09:23 Pulse Oximetry 98 05/14/25 09:23 Oxygen Delivery Room Air 05/14/25 09:23 Temperature 36.7 C 05/14/25 09:23 Pulse Rate 63 05/14/25 09:23 Respiratory Rate 18 05/14/25 09:23 Blood Pressure 134/68 05/14/25 09:23 Pulse Oximetry 98 05/14/25 09:23 Oxygen Delivery Room Air 05/14/25 09:23 Reviewed MDM - URI/Sore Throat MDM Narrative Medical decision making narrative: Differential diagnosis considered: Emmanuel virus, strep pharyngitis, allergic rhinitis, upper respiratory tract infection, sinusitis, rhinosinusitis, nasopharyngitis. viral pharyngitis, otitis media, otitis externa, pneumonia, bronchitis, viral cough syndrome, viral syndrome, and influenza.? Exam findings show no acute concerns or changes; patient is non-toxic appearing and is in no distress.? Patient is appropriate for outpatient treatment and follow-up. Differential Diagnosis Differential diagnosis: Likely upper respiratory infection, sinusitis, viral infection and other (cough) Medical Records Attestation: I reviewed the patient's medical records. Lab Data Attestation: I reviewed the patient's lab results. Critical Care Time Critical Care Time Critical Care Time: No Discharge Plan Discharge Clinical Impression: Upper respiratory infection Qualifiers: URI type: unspecified URI Qualified Code(s): J06.9 - Acute upper respiratory infection, unspecified Patient Disposition: Home Condition: Stable Instructions: Upper Respiratory Infection (ED) Additional Instructions: Increase fluids especially juices and water [id number] cough and cold medicine of your choice for your symptoms Medrol Dosepak take as prescribed Coricidin brand HB P cold and flu tabs as prescribed heat to the face 20-30 minutes 4-6 times a day for pain Salt water gargles, throat lozenges or throat sprays as desired If your symptoms persist, change or worsen significantly before you can contact your personal physician then please, without delay, go to the emergency department for further evaluation. Follow-up with PCP in 7-10 days or sooner if needed Follow up with PCP soon in regards to your blood pressure which is elevated above threshold for referral. Blood pressure above 120/80 may indicate pre- hypertension. 134/68 Patient Language: Belgian Prescriptions: New methylprednisolone [Medrol (Rocky)] 4 mg tablets,dose pack See Rx Instructions .ROUTE .COMPLEX Qty: 21 0RF Rx Instructions: orally per package directions Coricidin HBP Cold and Flu 2-325 mg tablet 1 tablet PO Q4-6H PRN (Reason: cold symptoms) Qty: 30 0RF No Action atorvastatin 20 mg tablet 20 mg PO DAILY Patient Comments: 40 mg aspirin [Adult Low Dose Aspirin] 81 mg tablet,delayed release (DR/EC) 81 mg PO DAILY Follow-up/Referrals: Beto Chan MD [Primary Care Provider, [facility]] Time of Disposition: 09:50 Quality [place] Coma Scale Eyes: Open Verbal: Oriented and Alert Motor: Follows Commands Anahy Coma Total Score: 15
== END 2025-05-14 10:00 | disposition home or self-care (01) ==
PROVIDERS: Emergency Provider Registered Nurse; PCP Family Medicine
DX: J06.9 Acute upper respiratory infection, unspecified (principal); I10 Essential (primary) hypertension; E78.5 Hyperlipidemia, unspecified; I25.2 Old myocardial infarction; Z79.82 Long term (current) use of aspirin; Z95.1 Presence of aortocoronary bypass graft
CPT/HCPCS: 99213; G0463